=== PATIENT | male | born 1965 | race Hispanic/Latino ===

== ENCOUNTER 2017-10-16 18:35 | Emergency (ER) | payer MEDICAID ==
[2017-10-16 18:35] VITALS: BMI 25.8
[2017-10-16 18:42] VITALS: BP 127/67; PULSE 77; RESP 20; TEMP 98.1; O2SAT 100
--- NOTE | 2017-10-16 19:29 | ED PDOC ---
Lower Extremity Pain/Injury Time Seen by Provider: 10/16/17 18:54 Chief Complaint (Nursing): Lower Extremity Problem/Injury Chief Complaint (Provider): Lower Extremity Problem/Injury History Per: Patient History/Exam Limitations: no limitations Onset/Duration Of Symptoms: Days (x 1 ) Current Symptoms Are (Timing): Still Present Additional Complaint(s): 52 year old male presents to the ED complaining of right lower extremity pain. Patient reports most likely breaking right lower extremity about 4 weeks ago. He had surgery on September 22 and was admitted to outpatient rehabilitation who discharged him today. Patient was seen at [facility] today where he was reevaluated and sent out with prescriptions for Tramadol and antibiotics. He reports pain when he attempts to ambulate. PMD: none provided Past Medical History Reviewed: Historical Data, Nursing Documentation, Vital Signs Vital Signs: Last Vital Signs Temp 98.1 F 10/16/17 18:40 Pulse 77 10/16/17 18:40 Resp 20 10/16/17 18:40 BP 127/67 10/16/17 18:40 Pulse Ox 100 10/16/17 18:40 - Medical History PMH: Anxiety, Bronchitis, COPD (Chronic bronchitis), Hepatitis, Pneumonia Denies: Diabetes, HIV, HTN, Chronic Kidney Disease, Seizures, Sexually Transmitted Disease - Surgical History Other surgeries: right leg surgery - Family History Family History: States: Unknown Family Hx - Social History Current smoker - smoking cessation education provided: Yes Alcohol: None Drugs: Denies - Immunization History Hx Tetanus Toxoid Vaccination: No Hx Influenza Vaccination: No Hx Pneumococcal Vaccination: Yes - Home Medications Home Medications: Ambulatory Orders Medication Instructions Recorded Doxycycline Hyclate 100 mg PO BID #20 cap 10/16/17 traMADol [Ultram] 50 mg PO Q6 PRN #20 tab 10/16/17 - Allergies Allergies/Adverse Reactions: Allergies Allergy/AdvReac Type Severity Reaction Status Date / Time No Known Allergies Allergy Verified 10/16/17 18:40 Review of Systems ROS Statement: Except As Marked, All Systems Reviewed And Found Negative Musculoskeletal: Positive for: Leg Pain (right lower leg pain upon ambulation), Other Physical Exam - Reviewed Nursing Documentation Reviewed: Yes Vital Signs Reviewed: Yes - Physical Exam Appears: Positive for: Non-toxic, No Acute Distress Head Exam: Positive for: ATRAUMATIC, NORMOCEPHALIC Skin: Positive for: Normal Color, Warm, Dry Eye Exam: Positive for: EOMI, Normal appearance, PERRL Neck: Positive for: Normal, Painless ROM, Supple Cardiovascular/Chest: Positive for: Regular Rate, Rhythm. Negative for: Murmur Respiratory: Positive for: Normal Breath Sounds. Negative for: Respiratory Distress Gastrointestinal/Abdominal: Positive for: Normal Exam, Soft. Negative for: Tenderness Back: Positive for: Normal Inspection. Negative for: L CVA Tenderness, R CVA Tenderness, Vertebral Tenderness Extremity: Positive for: Swelling (mild distal swelling of right lower extremity. ), Other (Wound with sutures in place and mild redness around it. Tender to touch.). Negative for: Deformity - Laboratory Results Result Diagrams: 10/16/17 19:53 10/16/17 19:53 - ECG O2 Sat by Pulse Oximetry: 100 (RA) Pulse Ox Interpretation: Normal Medical Decision Making Medical Decision Making: Time: 19:17 Impression: right lower extremity pain Initial Plan: --CMP --CBC with differentials --Erythrocyte Sedimentation Rate --Toradol 30 mg IV --Blood cx --Right ankle x-ray --Right tibula fibula x-ray Scribe Attestation: Documented by Poppy Baldwin, acting as a scribe for Marce Villatoro MD. Provider Scribe Attestation: All medical record entries made by the Scribe were at my direction and personally dictated by me. I have reviewed the chart and agree that the record accurately reflects my personal performance of the history, physical exam, medical decision making, and the department course for this patient. I have also personally directed, reviewed, and agree with the discharge instructions and disposition. 9.30p - labs normal. x-rays shows ORIF. Disposition - Clinical Impression Clinical Impression: Tibia/fibula fracture - Patient ED Disposition Is Patient to be Admitted: No Doctor Will See Patient In The: Office Counseled Patient/Family Regarding: Diagnosis, Need For Followup - Disposition Disposition: Routine/Home Disposition Time: 21:35 Condition: STABLE Additional Instructions: take meds that were prescribed to you from [facility] ER Instructions: Tibia Fracture, Fibula Fracture (DC) Forms: [employer] (Khmer), [facility] ED School/Work Excuse - POA Present On Arrival: Falls Or Trauma
[2017-10-16 19:57] LABS: BASO # 0.1 K/uL (0.0-0.2); BASO % 1.3 % (0.0-2.0); EOS # 0.1 K/uL (0.0-0.7); EOS % 1.6 % (0.0-4.0); HEMOGLOBIN 13.4 g/dL (12.0-18.0); LYMPH # 1.5 K/uL (1.0-4.3); LYMPH % 16.6 % (20.0-40.0); MEAN CELL VOLUME 86.2 fl (80.0-94.0); MEAN CORPUSCULAR HEMOGLOBIN 28.2 pg (27.0-31.0); MEAN CORPUSCULAR HGB CONC 32.8 g/dL (33.0-37.0); MEAN PLATELET VOLUME 9.5 fl (7.2-11.7); MONO # 0.5 K/uL (0.0-0.8); MONO % 6.1 % (0.0-10.0); NEUT # 6.6 K/uL (1.8-7.0); NEUT % 74.4 % (50.0-75.0); RBC 4.74 Mil/uL (4.40-5.90); RED CELL DISTRIBUTION WIDTH 14.4 % (11.5-14.5); WHITE BLOOD COUNT 8.9 K/uL (4.8-10.8)
[2017-10-16 20:41] LABS: ALB/GLOB RATIO 1.1 (1.0-2.1); ALBUMIN 4.1 g/dL (3.5-5.0); ALT/SGPT 51 U/L (21-72); AST/SGOT 49 U/L (17-59); BLOOD UREA NITROGEN 13 mg/dl (9-20); CALCIUM 9.9 mg/dL (8.4-10.2); GFR AFRICAN-AMERICAN > 60; GFR NON-AFRICAN AMERICAN > 60
--- NOTE | 2017-10-17 10:10 | RAD ---
PROCEDURE: Right ankle Radiographs. HISTORY: fracture history COMPARISON: None. FINDINGS: BONES: Status post ORIF of a distal tibial fracture with persistent angulation of the distal fragment. Accompanying comminuted fracture of the distal fibula. JOINTS: Normal. No dislocation. SOFT TISSUES: Normal. OTHER FINDINGS: None. IMPRESSION: Status post ORIF of a distal tibial fracture with persistent angulation of the distal fragment. Accompanying comminuted fracture of the distal fibula.
--- NOTE | 2017-10-17 10:11 | RAD ---
HISTORY: past h/o fracture COMPARISON: No prior FINDINGS: BONES: Status post ORIF of a tibial shaft fracture with comminution. Distal comminuted fracture of the distal fibula. JOINTS: Normal. No osteoarthritis. SOFT TISSUE: Normal. OTHER FINDINGS: None . IMPRESSION: Status post ORIF of a tibial shaft fracture with comminution. Distal comminuted fracture of the distal fibula.
== END 2017-10-16 22:25 | disposition home or self-care (01) ==
LOC: H.ER 18:35
DX: M79.604 Pain in right leg (principal); F41.9 Anxiety disorder, unspecified; J44.9 Chronic obstructive pulmonary disease, unspecified
CPT/HCPCS: 73590; 73610; 80053; 85025; 85651; 87040; 96374; 99284; J1885

== ENCOUNTER 2018-02-19 19:53 | Inpatient (IN) | payer MEDICAID ==
[2018-02-19] MEDS ORDERED: Sodium Chloride 0.9% 1,000 ML IV STA (20:45)
[2018-02-19 20:47] LABS: BASO # 0.1 K/uL (0.0-0.2); BASO % 0.6 % (0.0-2.0); EOS # 0.3 K/uL (0.0-0.7); EOS % 2.5 % (0.0-4.0); HEMOGLOBIN 15.6 g/dL (12.0-18.0); LYMPH # 4.9 K/uL (1.0-4.3); MEAN CELL VOLUME 86.8 fl (80.0-94.0); MEAN CORPUSCULAR HEMOGLOBIN 29.8 pg (27.0-31.0); MEAN CORPUSCULAR HGB CONC 34.3 g/dL (33.0-37.0); MEAN PLATELET VOLUME 8.4 fl (7.2-11.7); MONO # 0.7 K/uL (0.0-0.8); MONO % 6.6 % (0.0-10.0); NEUT # 4.5 K/uL (1.8-7.0); NEUT % 43.3 % (50.0-75.0); NRBC % 0.1 % (0.0-0.0); RBC 5.23 Mil/uL (4.40-5.90); RED CELL DISTRIBUTION WIDTH 14.5 % (11.5-14.5); WHITE BLOOD COUNT 10.4 K/uL (4.8-10.8)
--- NOTE | 2018-02-19 21:04 | ED PDOC ---
HPI: Abdomen Time Seen by Provider: 02/19/18 20:04 Chief Complaint (Nursing): Chest Pain Chief Complaint (Provider): abdominal pain History Per: Patient History/Exam Limitations: no limitations Onset/Duration Of Symptoms: Days (x1) Current Symptoms Are (Timing): Still Present Additional Complaint(s): 53 year old male with medical history of alcoholism and pancreatitis, presents to ED with a complaint of upper abdominal pain radiating to back ongoing for 1 day. He further reports associated nausea, nonbloody/nonbilious vomiting and chest pain. Patient states symptoms feel similar to previous pancreatitis episode in the past and admits to drinking alcohol yesterday. PMD: none provided Past Medical History Reviewed: Historical Data, Nursing Documentation, Vital Signs Vital Signs: Last Vital Signs Temp 98.2 F 02/20/18 01:13 Pulse 63 02/20/18 01:13 Resp 20 02/20/18 01:13 BP 138/79 02/20/18 01:13 Pulse Ox 98 02/20/18 01:13 - Medical History PMH: Anxiety, Bipolar Disorder, Bronchitis, COPD, Depression, Hepatitis (C), Pancreatitis, Pneumonia, Post Traumatic Stress Disorder Denies: Diabetes, HIV (Patient denied), HTN (Patient denied), Chronic Kidney Disease, Seizures, Sexually Transmitted Disease (Patient denied) - Family History Family History: States: Unknown Family Hx - Social History Current smoker - smoking cessation education provided: No Alcohol: Occasional Drugs: Denies - Immunization History Hx Tetanus Toxoid Vaccination: No Hx Influenza Vaccination: Yes Hx Pneumococcal Vaccination: Yes - Home Medications Home Medications: Ambulatory Orders Medication Instructions Recorded No Known Home Med 02/19/18 - Allergies Allergies/Adverse Reactions: Allergies Allergy/AdvReac Type Severity Reaction Status Date / Time No Known Allergies Allergy Verified 02/20/18 01:55 Review of Systems ROS Statement: Except As Marked, All Systems Reviewed And Found Negative Cardiovascular: Positive for: Chest Pain Gastrointestinal: Positive for: Nausea, Vomiting (NBNB), Abdominal Pain (upper) Musculoskeletal: Positive for: Back Pain Physical Exam - Reviewed Nursing Documentation Reviewed: Yes Vital Signs Reviewed: Yes - Physical Exam Appears: Positive for: Uncomfortable Head Exam: Positive for: ATRAUMATIC, NORMAL INSPECTION, NORMOCEPHALIC Skin: Positive for: Normal Color Eye Exam: Positive for: Normal appearance ENT: Positive for: Other (dry mucous membranes) Neck: Positive for: Normal Cardiovascular/Chest: Positive for: Regular Rate, Rhythm, Chest Non Tender. Negative for: Murmur Respiratory: Positive for: Normal Breath Sounds. Negative for: Respiratory Distress Gastrointestinal/Abdominal: Positive for: Soft, Tenderness (epigastric) Back: Positive for: Normal Inspection. Negative for: L CVA Tenderness, R CVA Tenderness Extremity: Positive for: Normal ROM (upper/lower) Neurologic/Psych: Positive for: Alert, Oriented. Negative for: Motor/Sensory Deficits - Laboratory Results Result Diagrams: 02/19/18 20:15 02/19/18 20:15 - ECG O2 Sat by Pulse Oximetry: 99 (RA) Pulse Ox Interpretation: Normal Medical Decision Making Medical Decision Making: Initial Impression: 53 year old male with chest pain and abdominal pain , in setting of known pancreatitis and alcohol abuse Initial Plan: * Alcohol serum * CMP * Drug screen, urine * Lipase * Troponin I * CBC * PTT * PT * Morphine 2mg IVP * NS 1,000ml IV per 1,000mls/hr * Pepcid 20mg IV * Zofran 4mg IV Time: 2125 --Alcohol serum: 358 mg/dl Scribe Attestation: Documented by Janette Salmeron, acting as a scribe for James Cordova MD. Provider Scribe Attestation: All medical record entries made by the Scribe were at my direction and personally dictated by me. I have reviewed the chart and agree that the record accurately reflects my personal performance of the history, physical exam, medical decision making, and the department course for this patient. I have also personally directed, reviewed, and agree with the discharge instructions and disposition. Disposition - Clinical Impression Clinical Impression: Alcoholic pancreatitis - Patient ED Disposition Is Patient to be Admitted: Yes - Disposition Disposition Time: 22:00 Condition: STABLE
[2018-02-19 21:10] LABS: PARTIAL THROMBOPLASTIN TIME 33.1 Seconds (25.6-37.1); PROTHROMBIN TIME 10.7 Seconds (9.8-13.1)
[2018-02-19 21:21] LABS: ALB/GLOB RATIO 1.3 (1.0-2.1); ALBUMIN 4.8 g/dL (3.5-5.0); ALT/SGPT 113 U/L (21-72); AST/SGOT 131 U/L (17-59); BLOOD UREA NITROGEN 10 mg/dl (9-20); GFR AFRICAN-AMERICAN > 60; GFR NON-AFRICAN AMERICAN > 60
[2018-02-19 21:40] LABS: BARBITURATES, UR NEGATIVE (NEGATIVE); BENZODIAZEPINES, UR NEGATIVE (NEGATIVE); OPIATES, UR NEGATIVE (NEGATIVE); PHENCYCLIDINE, UR NEGATIVE (NEGATIVE)
[2018-02-19] MEDS: Lactated Ringer's 1,000 ML IV STA (22:45)
[2018-02-20 01:55] VITALS: BMI 31.5
[2018-02-20] MEDS ORDERED: Sodium Chloride 0.9% 1,000 ML IV SCH (02:00)
--- NOTE | 2018-02-20 08:54 | CP.PCM.CON ---
<Maxine Nichole - Last Filed: 02/20/18 09:41> History of Present Illness - History of Present Illness History of Present Illness: Gastroenterology Fellow/PGY6 Consult Note 53 year old male with PMH of Polysubstance Abuse, Alcoholic Pancreatitis 02/2017 , and HCV 2008 s/p IFN/Ribavirin 2009 without SVR presenting with abdominal pain. Patient notes sudden onset of epigastric pain to back yesterday, pain scale 10/10. Admits to daily 12pack 24 ounce beers and a pint of vodka for the last year. Patient is more severe than pancreatitis episode last year. Associated loss of appetite, nausea, sweats, and last bowel movement being two days ago. Denies fever, chills, vomting, diarrhea, melena, hematochezia, heartburn, bloating, postprandial pain, leg swelling, chest pain, or shortness of breath. Admits to poor oral intake due to heavy alcohol abuse leading to 45 pound weight loss in the last three years. Seen in [facility] ED on 02/07 for lethargy due to heroin and alcohol intoxication requiring Narcan therapy and referred to Detox. No prior EGD. Prior colonoscopy seven years ago endorsed to be normal. Family History- denies pancreatitis, pancreatic cancer, stomach cancer, colon cancer Social History- 08/12 ppdx30 years., cocaine, marijuana/heroin over last 30 years , 12-pack 24-oz beers daily/pint vodka [id number] years Surgical History -RLE ORIF, left shoulder surgery Review of Systems - Review of Systems Review of Systems: 12-point review of systems negative except for as above Past Patient History - Infectious Disease Hx of Infectious Diseases: None - Past Medical History & Family History Past Medical History?: Yes - Past Social History Alcohol: Occasional Drugs: Denies - CARDIAC Hx Hypertension: No (Patient denied) - PULMONARY Hx Bronchitis: Yes Hx Chronic Obstructive Pulmonary Disease (COPD): Yes Hx Pneumonia: Yes - NEUROLOGICAL Hx Seizures: No - HEENT Hx HEENT Problems: Yes Other/Comment: " defect on L eye,Blurry Vision " - RENAL Hx Chronic Kidney Disease: No - ENDOCRINE/METABOLIC Hx Endocrine Disorders: Yes Other/Comment: Border line DM, denies taking meds - HEMATOLOGICAL/ONCOLOGICAL Hx Human Immunodeficiency Virus (HIV): No (Patient denied) - INTEGUMENTARY Hx Dermatological Problems: No - MUSCULOSKELETAL/RHEUMATOLOGICAL Hx Falls: Yes - GASTROINTESTINAL Hx Pancreatitis: Yes - GENITOURINARY/GYNECOLOGICAL Hx Sexually Transmitted Disorders: No (Patient denied) - PSYCHIATRIC Hx Anxiety: Yes Hx Bipolar Disorder: Yes Hx Depression: Yes Hx Post Traumatic Stress Disorder: Yes - SURGICAL HISTORY Hx Surgeries: Yes Hx Orthopedic Surgery: Yes (R leg 09/22/17 ORIF right Tib) Other/Comment: Surgery on L shoulder 15. years ago from injury", a big TV fell on my Shoulder" - ANESTHESIA Hx Anesthesia: Yes Hx Anesthesia Reactions: No Hx Malignant Hyperthermia: No Meds Allergies/Adverse Reactions: Allergies Allergy/AdvReac Type Severity Reaction Status Date / Time No Known Allergies Allergy Verified 02/20/18 01:55 - Medications Medications: Current Medications Enoxaparin Sodium (Lovenox) 40 mg SC DAILY [facility] PRN Reason: Protocol Lactated Ringer's (Lactated Ringer's) 1,000 mls @ 1,000 mls/hr IV .Q1H [facility] Morphine Sulfate (Morphine) 2 mg IVP Q3 PRN PRN Reason: Pain, severe (8-10) Last Admin: 02/20/18 08:51 Dose: 2 mg Ondansetron HCl (Zofran Inj) 4 mg IVP Q8 PRN PRN Reason: Nausea/Vomiting Last Admin: 02/20/18 07:26 Dose: 4 mg Pantoprazole Sodium (Protonix Inj) 40 mg IVP DAILY [facility] Last Admin: 02/20/18 02:14 Dose: 40 mg Physical Exam - Constitutional Appears: Non-toxic, No Acute Distress, Other - Head Exam Head Exam: ATRAUMATIC, NORMOCEPHALIC - Eye Exam Eye Exam: EOMI, PERRL. absent: Scleral icterus Pupil Exam: PERRL. absent: Miosis, Mydriatic - ENT Exam ENT Exam: Mucous Membranes Dry, Normal Oropharynx - Neck Exam Neck exam: Positive for: Full Rom, Normal Inspection - Respiratory Exam Respiratory Exam: Clear to Auscultation Bilateral. absent: Rales, Rhonchi, Wheezes - Cardiovascular Exam Cardiovascular Exam: RRR, +S1, +S2. absent: Gallop, Rubs - GI/Abdominal Exam GI & Abdominal Exam: Guarding, Hypoactive Bowel Sounds, Soft, Tenderness. absent: Distended, Firm, Organomegaly, Rebound, Rigid Additional comments: epigastric tenderness to palpation - Extremities Exam Extremities exam: Positive for: normal inspection. Negative for: pedal edema - Neurological Exam Neurological exam: Alert, Oriented x3 - Psychiatric Exam Psychiatric exam: Normal Affect, Normal Mood - Skin Skin Exam: Diaphoretic, Intact, Normal Color, Warm Results - Vital Signs Recent Vital Signs: Last Vital Signs Temp 98.2 F 02/20/18 01:13 Pulse 63 02/20/18 01:13 Resp 20 02/20/18 01:13 BP 138/79 02/20/18 01:13 Pulse Ox 99 02/20/18 04:48 - Labs Result Diagrams: 02/19/18 20:15 02/19/18 20:15 Labs: Laboratory Results - last 24 hr 02/19/18 02/19/18 02/19/18 20:15 20:15 20:15 WBC 10.4 RBC 5.23 Hgb 15.6 D Hct 45.4 MCV 86.8 MCH 29.8 MCHC 34.3 RDW 14.5 Plt Count 199 MPV 8.4 Neut % (Auto) 43.3 L Lymph % (Auto) 47.0 H Oliver % (Auto) 6.6 Eos % (Auto) 2.5 Baso % (Auto) 0.6 Neut # (Auto) 4.5 Lymph # (Auto) 4.9 H Oliver # (Auto) 0.7 Eos # (Auto) 0.3 Baso # (Auto) 0.1 PT 10.7 INR 1.0 APTT 33.1 Sodium 144 Potassium 4.1 Chloride 105 Carbon Dioxide 23 Anion Gap 20 BUN 10 Creatinine 0.7 L Est GFR ( Amer) > 60 Est GFR (Non-Af Amer) > 60 Random Glucose 110 Calcium 9.0 Total Bilirubin 0.6 AST 131 H ALT 113 H D Alkaline Phosphatase 150 H Troponin I < 0.0120 Total Protein 8.6 H Albumin 4.8 Globulin 3.8 Albumin/Globulin Ratio 1.3 Lipase Urine Opiates Screen Urine Methadone Screen Ur Barbiturates Screen Ur Phencyclidine Scrn Ur Amphetamines Screen U Benzodiazepines Scrn U Oth Cocaine Metabols U Cannabinoids Screen Alcohol, Quantitative 358 H* 02/19/18 02/19/18 20:46 20:46 WBC RBC Hgb Hct MCV MCH MCHC RDW Plt Count MPV Neut % (Auto) Lymph % (Auto) Oliver % (Auto) Eos % (Auto) Baso % (Auto) Neut # (Auto) Lymph # (Auto) Oliver # (Auto) Eos # (Auto) Baso # (Auto) PT INR APTT Sodium Potassium Chloride Carbon Dioxide Anion Gap BUN Creatinine Est GFR ( Amer) Est GFR (Non-Af Amer) Random Glucose Calcium Total Bilirubin AST ALT Alkaline Phosphatase Troponin I Total Protein Albumin Globulin Albumin/Globulin Ratio Lipase 525 H Urine Opiates Screen Negative Urine Methadone Screen Negative Ur Barbiturates Screen Negative Ur Phencyclidine Scrn Negative Ur Amphetamines Screen Negative U Benzodiazepines Scrn Negative U Oth Cocaine Metabols Negative U Cannabinoids Screen Negative Alcohol, Quantitative Assessment & Plan - Assessment and Plan (Free Text) Assessment: 53 year old male with PMH of Polysubstance Abuse, Alcoholic Pancreatitis 02/2017 , and HCV 2008 s/p IFN/Ribavirin 2009 without SVR presenting with abdominal pain. Active treatment of alcoholic pancreatitis and alcohol withdrawal. No prior EGD. Prior colonoscopy seven years ago endorsed to be normal. Plan: -NPO -aggressive IVFs -received 2L IVF bolus -ordered 3rd LR bolus -maintenance LR 250cc/hr -suportive care: pain control, anti-emetics -pending U/S to evaluate for gallstones -counselled on alcohol cessation -alcohol withdrawal protocol -UDS negative -recommend evaluate for inpatient detox -will follow clinical course <Jaskaran Overton - Last Filed: 02/20/18 09:53> Meds - Medications Medications: Current Medications Enoxaparin Sodium (Lovenox) 40 mg SC DAILY [facility] PRN Reason: Protocol Lactated Ringer's (Lactated Ringer's) 1,000 mls @ 1,000 mls/hr IV .Q1H [facility] Lactated Ringer's (Lactated Ringer's) 1,000 mls @ 250 mls/hr IV .Q4H [facility] Stop: 02/20/18 21:59 Morphine Sulfate (Morphine) 2 mg IVP Q3 PRN PRN Reason: Pain, severe (8-10) Last Admin: 02/20/18 08:51 Dose: 2 mg Ondansetron HCl (Zofran Inj) 4 mg IVP Q8 PRN PRN Reason: Nausea/Vomiting Last Admin: 02/20/18 07:26 Dose: 4 mg Pantoprazole Sodium (Protonix Inj) 40 mg IVP DAILY [facility] Last Admin: 02/20/18 02:14 Dose: 40 mg Results - Vital Signs Recent Vital Signs: Last Vital Signs Temp 98.2 F 02/20/18 01:13 Pulse 63 02/20/18 01:13 Resp 20 02/20/18 01:13 BP 138/79 02/20/18 01:13 Pulse Ox 99 02/20/18 04:48 - Labs Result Diagrams: 02/19/18 20:15 02/19/18 20:15 Labs: Laboratory Results - last 24 hr 02/19/18 02/19/18 02/19/18 20:15 20:15 20:15 WBC 10.4 RBC 5.23 Hgb 15.6 D Hct 45.4 MCV 86.8 MCH 29.8 MCHC 34.3 RDW 14.5 Plt Count 199 MPV 8.4 Neut % (Auto) 43.3 L Lymph % (Auto) 47.0 H Oliver % (Auto) 6.6 Eos % (Auto) 2.5 Baso % (Auto) 0.6 Neut # (Auto) 4.5 Lymph # (Auto) 4.9 H Oliver # (Auto) 0.7 Eos # (Auto) 0.3 Baso # (Auto) 0.1 PT 10.7 INR 1.0 APTT 33.1 Sodium 144 Potassium 4.1 Chloride 105 Carbon Dioxide 23 Anion Gap 20 BUN 10 Creatinine 0.7 L Est GFR ( Amer) > 60 Est GFR (Non-Af Amer) > 60 Random Glucose 110 Calcium 9.0 Total Bilirubin 0.6 AST 131 H ALT 113 H D Alkaline Phosphatase 150 H Troponin I < 0.0120 Total Protein 8.6 H Albumin 4.8 Globulin 3.8 Albumin/Globulin Ratio 1.3 Lipase Urine Opiates Screen Urine Methadone Screen Ur Barbiturates Screen Ur Phencyclidine Scrn Ur Amphetamines Screen U Benzodiazepines Scrn U Oth Cocaine Metabols U Cannabinoids Screen Alcohol, Quantitative 358 H* 02/19/18 02/19/18 20:46 20:46 WBC RBC Hgb Hct MCV MCH MCHC RDW Plt Count MPV Neut % (Auto) Lymph % (Auto) Oliver % (Auto) Eos % (Auto) Baso % (Auto) Neut # (Auto) Lymph # (Auto) Oliver # (Auto) Eos # (Auto) Baso # (Auto) PT INR APTT Sodium Potassium Chloride Carbon Dioxide Anion Gap BUN Creatinine Est GFR ( Amer) Est GFR (Non-Af Amer) Random Glucose Calcium Total Bilirubin AST ALT Alkaline Phosphatase Troponin I Total Protein Albumin Globulin Albumin/Globulin Ratio Lipase 525 H Urine Opiates Screen Negative Urine Methadone Screen Negative Ur Barbiturates Screen Negative Ur Phencyclidine Scrn Negative Ur Amphetamines Screen Negative U Benzodiazepines Scrn Negative U Oth Cocaine Metabols Negative U Cannabinoids Screen Negative Alcohol, Quantitative Attending/Attestation - Attestation I have personally seen and examined this patient.: Yes I have fully participated in the care of the patient.: Yes I have reviewed all pertinent clinical information: Yes Notes (Text): 02/20/18 09:49 I have seen and examined patient with GI fellow. Agree with above documentation with the following additions. In brief, this is a 53 year old male with history of polysubstance and ETOH abuse, HCV who presents to hospital with complaint of severe abdominal pain in setting of ongoing ETOH binge consumption. He describes an epigastric 10/10 intensity pain radiating to back that is worse after attempted meal consumption. He denies associated nausea, vomiting, fever/chills, or change in bowel habits. He has not had a bowel movement over past 3 days. He does admit to a nearly 40 pound weight loss over the past 2 years due to chronic alcoholism with reduced PO intake. He has tried to seek admission to rehabilitation facility without success. He had a colonoscopy 7 years ago which was normal as per patient. Review of vitals from today are normal. Polysubstance abuse ETOH abuse history of HCV Abdominal pain, acute ETOH pancreatitis - NPO - Aggressive IVF hydration - Monitor for signs of ETOH withdrawal - Obtain HCV viral load - LFTs stable, continue to monitor - Abdominal US ordered, rule out gallstones, liver lesion - ETOH cessation counseling - Will continue to monitor patient clinical course
[2018-02-20] MEDS ORDERED: Lactated Ringer's 1,000 ML IV SCH (09:00)
--- NOTE | 2018-02-20 09:37 | CP.PCM.CON ---
History of Present Illness - History of Present Illness History of Present Illness: General Surgery Dr. Magaña 53 y/o M w/ PMHx of COPD, pancreatitis, EtOH dependence presented to the ED last evening c/o abd pain, N/V. Pt reports pain for last couple of weeks for which he was self-medicating w/ EtOH. Pt had similar pain ~1yr ago, at which time he was treated for pancreatitis [facility]. Pain worsened Wednesday and has been constant since then. Nothing made the pain better and movement made the pain worse. Pt reports pain stabs straight through to back. Pt no longer able to tolerate the pain, thus prompting him to come to the ED Wednesday night. Pt reports vomiting w/ any PO intake. Pt reports concurrent heat intolerance and constipation. Pt denies F/C, diarrhea, hematemesis, melena, hematochezia. PMHx: see above, depression, anxiety, bipolar, PTSD, poly substance abuse Meds: reviewed in chart NKDA PSHx: RLE compound fx repair, L shoulder arthroscopy SHx: 1/2 PPD x 50yrs. 6-12 24oz beers daily. (+)marijuana (1wk ago), cocaine ( unsure last use), Heroine (2wks ago) FHx: reviewed, noncontributory Review of Systems - Review of Systems All systems: reviewed and no additional remarkable complaints except (see HPI) Past Patient History - Infectious Disease Hx of Infectious Diseases: None - Past Medical History & Family History Past Medical History?: Yes - Past Social History Alcohol: Occasional Drugs: Denies - CARDIAC Hx Hypertension: No (Patient denied) - PULMONARY Hx Bronchitis: Yes Hx Chronic Obstructive Pulmonary Disease (COPD): Yes Hx Pneumonia: Yes - NEUROLOGICAL Hx Seizures: No - HEENT Hx HEENT Problems: Yes Other/Comment: " defect on L eye,Blurry Vision " - RENAL Hx Chronic Kidney Disease: No - ENDOCRINE/METABOLIC Hx Endocrine Disorders: Yes Other/Comment: Border line DM, denies taking meds - HEMATOLOGICAL/ONCOLOGICAL Hx Human Immunodeficiency Virus (HIV): No (Patient denied) - INTEGUMENTARY Hx Dermatological Problems: No - MUSCULOSKELETAL/RHEUMATOLOGICAL Hx Falls: Yes - GASTROINTESTINAL Hx Pancreatitis: Yes - GENITOURINARY/GYNECOLOGICAL Hx Sexually Transmitted Disorders: No (Patient denied) - PSYCHIATRIC Hx Anxiety: Yes Hx Bipolar Disorder: Yes Hx Depression: Yes Hx Post Traumatic Stress Disorder: Yes - SURGICAL HISTORY Hx Surgeries: Yes Hx Orthopedic Surgery: Yes (R leg 09/22/17 ORIF right Tib) Other/Comment: Surgery on L shoulder 15. years ago from injury", a big TV fell on my Shoulder" - ANESTHESIA Hx Anesthesia: Yes Hx Anesthesia Reactions: No Hx Malignant Hyperthermia: No Meds Allergies/Adverse Reactions: Allergies Allergy/AdvReac Type Severity Reaction Status Date / Time No Known Allergies Allergy Verified 02/20/18 01:55 - Medications Medications: Current Medications Enoxaparin Sodium (Lovenox) 40 mg SC DAILY IAN PRN Reason: Protocol Lactated Ringer's (Lactated Ringer's) 1,000 mls @ 1,000 mls/hr IV .Q1H IAN Lactated Ringer's (Lactated Ringer's) 1,000 mls @ 250 mls/hr IV .Q4H [facility] Stop: 02/20/18 21:59 Morphine Sulfate (Morphine) 2 mg IVP Q3 PRN PRN Reason: Pain, severe (8-10) Last Admin: 02/20/18 08:51 Dose: 2 mg Ondansetron HCl (Zofran Inj) 4 mg IVP Q8 PRN PRN Reason: Nausea/Vomiting Last Admin: 02/20/18 07:26 Dose: 4 mg Pantoprazole Sodium (Protonix Inj) 40 mg IVP DAILY [facility] Last Admin: 02/20/18 02:14 Dose: 40 mg Physical Exam - Constitutional Appears: Non-toxic, No Acute Distress - Head Exam Head Exam: NORMOCEPHALIC. absent: ATRAUMATIC (abrasion to upper lip. scar to nasal bone) - Eye Exam Eye Exam: Normal appearance - ENT Exam ENT Exam: Mucous Membranes Moist - Respiratory Exam Respiratory Exam: NORMAL BREATHING PATTERN. absent: Accessory Muscle Use, Respiratory Distress - Cardiovascular Exam Cardiovascular Exam: REGULAR RHYTHM. absent: Bradycardia, Tachycardia - GI/Abdominal Exam GI & Abdominal Exam: Soft. absent: Distended, Firm, Guarding, Rebound, Rigid, Tenderness - Extremities Exam Extremities exam: Positive for: normal inspection - Neurological Exam Neurological exam: Alert, Oriented x3 - Psychiatric Exam Psychiatric exam: Normal Affect, Normal Mood - Skin Skin Exam: Dry, Intact, Normal Color, Warm Results - Vital Signs Recent Vital Signs: Last Vital Signs Temp 98.2 F 02/20/18 01:13 Pulse 63 02/20/18 01:13 Resp 20 02/20/18 01:13 BP 138/79 02/20/18 01:13 Pulse Ox 99 02/20/18 04:48 - Labs Result Diagrams: 02/19/18 20:15 02/19/18 20:15 Labs: Laboratory Results - last 24 hr 02/19/18 02/19/18 02/19/18 20:15 20:15 20:15 WBC 10.4 RBC 5.23 Hgb 15.6 D Hct 45.4 MCV 86.8 MCH 29.8 MCHC 34.3 RDW 14.5 Plt Count 199 MPV 8.4 Neut % (Auto) 43.3 L Lymph % (Auto) 47.0 H [place] % (Auto) 6.6 Eos % (Auto) 2.5 Baso % (Auto) 0.6 Neut # (Auto) 4.5 Lymph # (Auto) 4.9 H [place] # (Auto) 0.7 Eos # (Auto) 0.3 Baso # (Auto) 0.1 PT 10.7 INR 1.0 APTT 33.1 Sodium 144 Potassium 4.1 Chloride 105 Carbon Dioxide 23 Anion Gap 20 BUN 10 Creatinine 0.7 L Est GFR ( Amer) > 60 Est GFR (Non-Af Amer) > 60 Random Glucose 110 Calcium 9.0 Total Bilirubin 0.6 AST 131 H ALT 113 H D Alkaline Phosphatase 150 H Troponin I < 0.0120 Total Protein 8.6 H Albumin 4.8 Globulin 3.8 Albumin/Globulin Ratio 1.3 Lipase Urine Opiates Screen Urine Methadone Screen Ur Barbiturates Screen Ur Phencyclidine Scrn Ur Amphetamines Screen U Benzodiazepines Scrn U Oth Cocaine Metabols U Cannabinoids Screen Alcohol, Quantitative 358 H* 02/19/18 02/19/18 20:46 20:46 WBC RBC Hgb Hct MCV MCH MCHC RDW Plt Count MPV Neut % (Auto) Lymph % (Auto) [place] % (Auto) Eos % (Auto) Baso % (Auto) Neut # (Auto) Lymph # (Auto) [place] # (Auto) Eos # (Auto) Baso # (Auto) PT INR APTT Sodium Potassium Chloride Carbon Dioxide Anion Gap BUN Creatinine Est GFR ( Amer) Est GFR (Non-Af Amer) Random Glucose Calcium Total Bilirubin AST ALT Alkaline Phosphatase Troponin I Total Protein Albumin Globulin Albumin/Globulin Ratio Lipase 525 H Urine Opiates Screen Negative Urine Methadone Screen Negative Ur Barbiturates Screen Negative Ur Phencyclidine Scrn Negative Ur Amphetamines Screen Negative U Benzodiazepines Scrn Negative U Oth Cocaine Metabols Negative U Cannabinoids Screen Negative Alcohol, Quantitative - Imaging and Cardiology US - abdomen Status: Image reviewed by me, Report reviewed by me Assessment & Plan - Assessment and Plan (Free Text) Assessment: 53 y/o M w/ abd pain 2/2 EtOH pancreatitis - strict NPO/IVF - pain management - CIWA - monitor vitals - monitor bowel fxn - stool softener - f/u GI recs - recommend EtOH counseling - cont non-operative management - encourage OOB to chair/Amb Pt discussed w/ Dr. Gómez Ashraf DO PGY3
[2018-02-20] MEDS: Lactated Ringer's 1,000 ML IV SCH ×4 (10:00→22:38)
[2018-02-20] MEDS: Enoxaparin 40 mg Syringe SC SCH (11:53)
[2018-02-20] MEDS: Lactated Ringer's 1,000 ML IV STA (11:53)
--- NOTE | 2018-02-20 12:04 | US ---
Date of service: 02/19/2018 HISTORY: epigastric pain COMPARISON: None. TECHNIQUE: Sonographic evaluation of the right upper quadrant of the abdomen. FINDINGS: LIVER: Measures 14.1 cm in length. . Smooth contour however increased echogenicity suggesting fatty infiltration however other infiltrative hepatocellular disease process not excluded. . No mass. No intrahepatic bile duct dilatation. GALLBLADDER: There is a small approximately 4 mm hyperechoic focus within the gallbladder lumen that could represent a tiny cholesterol stone or polyp. No significant posterior acoustic shadowing. No pericholecystic fluid collections or sonographic Riebiro sign. COMMON BILE DUCT: Measures 5.0 mm. No stones. No dilatation. PANCREAS: Unremarkable as visualized. No mass. No ductal dilatation. RIGHT KIDNEY: Measures 11.2 x 5.5 x 5.0 cm in length. Normal echogenicity. No calculus, mass, or hydronephrosis. AORTA: No aneurysmal dilatation. IVC: Unremarkable. OTHER FINDINGS: None . IMPRESSION: There is a small echogenic focus within the gallbladder lumen that could represent a cholesterol stone or polyp demonstrating no significant posterior acoustic shadowing. No sonographic Ribeiro sign. Increased hepatic echotexture likely representing fatty infiltration however other infiltrative hepatic cellular disease process not excluded
[2018-02-21] MEDS: Lactated Ringer's 1,000 ML IV SCH ×5 (04:49→23:33)
[2018-02-21 06:38] LABS: HEMOGLOBIN 13.7 g/dL (12.0-18.0); MEAN CELL VOLUME 86.6 fl (80.0-94.0); MEAN CORPUSCULAR HEMOGLOBIN 30.2 pg (27.0-31.0); MEAN CORPUSCULAR HGB CONC 34.9 g/dL (33.0-37.0); RBC 4.54 Mil/uL (4.40-5.90); RED CELL DISTRIBUTION WIDTH 14.1 % (11.5-14.5); WHITE BLOOD COUNT 7.1 K/uL (4.8-10.8)
[2018-02-21 07:01] LABS: ALB/GLOB RATIO 1.2 (1.0-2.1); ALBUMIN 3.5 g/dL (3.5-5.0); ALT/SGPT 74 U/L (21-72); AMYLASE 99 U/L (30-110); AST/SGOT 67 U/L (17-59); BLOOD UREA NITROGEN 11 mg/dl (9-20); CALCIUM 8.7 mg/dL (8.4-10.2); GFR AFRICAN-AMERICAN > 60; GFR NON-AFRICAN AMERICAN > 60; LIPASE 102 U/L (23-300)
--- NOTE | 2018-02-21 07:33 | CP.PCM.PN ---
Subjective - Date & Time of Evaluation Date of Evaluation: 02/21/18 Time of Evaluation: 07:32 - Subjective Subjective: General surgery progress note for Dr. Khadra Chin, PGY-2 Pt S & E at bedside at 0640 Pt reports continued intermittent epigastric abdominal pain, nausea with dry heaves. Voiding. Pt reports he is ambulating, getting out of bed. Pt asking for help getting into a ETOH detox program. Objective - Vital Signs/Intake and Output Vital Signs (last 24 hours): Temp Pulse Resp BP Pulse Ox 98.2 F 60 20 125/77 95 02/21/18 00:32 02/21/18 00:32 02/21/18 00:32 02/20/18 17:00 02/21/18 00:32 - Medications Medications: Current Medications Bisacodyl (Dulcolax) 10 mg LA DAILY PRN PRN Reason: Constipation Chlordiazepoxide (Librium) 25 mg PO BID [facility] Last Admin: 02/20/18 18:54 Dose: 25 mg Enoxaparin Sodium (Lovenox) 40 mg SC DAILY [facility] PRN Reason: Protocol Last Admin: 02/20/18 11:53 Dose: 40 mg Lactated Ringer's (Lactated Ringer's) 1,000 mls @ 150 mls/hr IV .Q6H40M [facility] Last Admin: 02/21/18 04:49 Dose: 150 mls/hr Lorazepam (Ativan) 1 mg IVP Q6 PRN PRN Reason: Agitation Morphine Sulfate (Morphine) 2 mg IVP Q3 PRN PRN Reason: Pain, severe (8-10) Last Admin: 02/21/18 05:33 Dose: 2 mg Ondansetron HCl (Zofran Inj) 4 mg IVP Q8 PRN PRN Reason: Nausea/Vomiting Last Admin: 02/20/18 18:56 Dose: 4 mg Pantoprazole Sodium (Protonix Inj) 40 mg IVP DAILY [facility] Last Admin: 02/20/18 09:00 Dose: Not Given - Labs Labs: 02/21/18 05:50 02/21/18 05:50 PT 10.7 Seconds (9.8-13.1) 02/19/18 20:15 INR 1.0 (0.9-1.2) 02/19/18 20:15 APTT 33.1 Seconds (25.6-37.1) 02/19/18 20:15 - Constitutional Appears: Non-toxic, No Acute Distress - Head Exam Head Exam: ATRAUMATIC, NORMAL INSPECTION, NORMOCEPHALIC - Eye Exam Eye Exam: EOMI, Normal appearance - ENT Exam ENT Exam: Mucous Membranes Moist, Normal Exam - Neck Exam Neck Exam: Full ROM, Normal Inspection - Respiratory Exam Respiratory Exam: NORMAL BREATHING PATTERN - Cardiovascular Exam Cardiovascular Exam: REGULAR RHYTHM, +S1, +S2 - GI/Abdominal Exam GI & Abdominal Exam: Guarding, Soft, Tenderness (epigastric). absent: Distended , Firm, Rigid - Extremities Exam Extremities Exam: Normal Inspection - Neurological Exam Neurological Exam: Alert, Awake, CN II-XII Intact, Oriented x3 - Psychiatric Exam Psychiatric exam: Normal Affect, Normal Mood - Skin Skin Exam: Dry, Intact, Normal Color, Warm Assessment and Plan - Assessment and Plan (Free Text) Assessment: 53M w/abdominal pain due to ETOH pancreatitis Plan: Strict NPO OOBTC Ambulate Continue IVF Pain control CIWA protocol Monitor VS Monitor bowel function Stool softener Recommend ETOH counseling/recommendations for ETOH detox as per primary team No surgical intervention at this time Will TITA attending Elsy, PGY-2
[2018-02-21] MEDS: Enoxaparin 40 mg Syringe SC SCH (08:38)
--- NOTE | 2018-02-21 09:24 | CP.PCM.PN ---
<Yasmin Weller - Last Filed: 02/21/18 14:09> Subjective - Date & Time of Evaluation Date of Evaluation: 02/21/18 Time of Evaluation: 07:45 - Subjective Subjective: PGY5 GI Follow-up Pt seen and examined bedside still has epigastric abd pain +nausea was not able to tolerate PO intake yesterday ROS: 12 point RO conducted, neg other than above Objective - Vital Signs/Intake and Output Vital Signs (last 24 hours): Temp Pulse Resp BP Pulse Ox 97.9 F 72 20 143/78 97 02/21/18 08:04 02/21/18 08:04 02/21/18 08:04 02/21/18 08:04 02/21/18 08:04 - Medications Medications: Current Medications Bisacodyl (Dulcolax) 10 mg SC DAILY PRN PRN Reason: Constipation Chlordiazepoxide (Librium) 25 mg PO BID [facility] Last Admin: 02/20/18 18:54 Dose: 25 mg Enoxaparin Sodium (Lovenox) 40 mg SC DAILY [facility] PRN Reason: Protocol Last Admin: 02/21/18 08:38 Dose: 40 mg Lactated Ringer's (Lactated Ringer's) 1,000 mls @ 250 mls/hr IV .Q4H [facility] Lorazepam (Ativan) 1 mg IVP Q6 PRN PRN Reason: Agitation Morphine Sulfate (Morphine) 2 mg IVP Q3 PRN PRN Reason: Pain, severe (8-10) Last Admin: 02/21/18 08:37 Dose: 2 mg Ondansetron HCl (Zofran Inj) 4 mg IVP Q8 PRN PRN Reason: Nausea/Vomiting Last Admin: 02/20/18 18:56 Dose: 4 mg Pantoprazole Sodium (Protonix Inj) 40 mg IVP DAILY [facility] Last Admin: 02/21/18 08:38 Dose: 40 mg - Labs Labs: 02/21/18 05:50 02/21/18 05:50 PT 10.7 Seconds (9.8-13.1) 02/19/18 20:15 INR 1.0 (0.9-1.2) 02/19/18 20:15 APTT 33.1 Seconds (25.6-37.1) 02/19/18 20:15 - Constitutional Appears: Well, No Acute Distress, In Acute Distress - Head Exam Head Exam: ATRAUMATIC, NORMOCEPHALIC - Eye Exam Eye Exam: Normal appearance - ENT Exam ENT Exam: Mucous Membranes Moist, Normal Exam - Neck Exam Neck Exam: Normal Inspection - Respiratory Exam Respiratory Exam: Clear to Ausculation Bilateral, NORMAL BREATHING PATTERN. absent: Rales, Rhonchi, Wheezes, Respiratory Distress - Cardiovascular Exam Cardiovascular Exam: REGULAR RHYTHM, +S1, +S2 - GI/Abdominal Exam GI & Abdominal Exam: Soft, Tenderness (epigastric ), Normal Bowel Sounds. absent: Guarding, Rigid, Organomegaly, Rebound - Extremities Exam Extremities Exam: absent: Joint Swelling, Pedal Edema - Neurological Exam Neurological Exam: Alert, Awake, Oriented x3 - Psychiatric Exam Psychiatric exam: Normal Affect, Normal Mood - Skin Skin Exam: Dry, Intact, Normal Color, Warm Assessment and Plan - Assessment and Plan (Free Text) Assessment: 53 year old male with PMH of Polysubstance Abuse, Alcoholic Pancreatitis 02/2017 , and HCV 2007 s/p IFN/Ribavirin 2009 without SVR presenting with abdominal pain. alcoholic pancreatitis alcohol withdrawal. ETOH abuse and dependense Elevated LFTs, likey 2/2 ETOH, r/o viral hep Hep Antibody + Plan: -keep NPO, can advance to clears if less nauseous -aggressive IVFs -received 3L IVF bolus -maintenance LR 250cc/hr -suportive care: pain control, anti-emetics -GB polyp vs stone on U/S -counselled on alcohol cessation -alcohol withdrawal protocol -UDS negative -recommend evaluate for inpatient detox -will follow clinical course Will D/W Dr. Jimenez <Beata Jimenez - Last Filed: 02/22/18 09:57> Objective - Vital Signs/Intake and Output Vital Signs (last 24 hours): Temp Pulse Resp BP Pulse Ox 97.9 F 73 20 145/85 95 02/22/18 08:19 02/22/18 08:19 02/22/18 08:19 02/22/18 08:19 02/22/18 08:19 - Medications Medications: Current Medications Bisacodyl (Dulcolax) 10 mg SC DAILY PRN PRN Reason: Constipation Chlordiazepoxide (Librium) 25 mg PO BID [facility] Last Admin: 02/22/18 08:30 Dose: 25 mg Enoxaparin Sodium (Lovenox) 40 mg SC DAILY [facility] PRN Reason: Protocol Last Admin: 02/22/18 08:30 Dose: 40 mg Lactated Ringer's (Lactated Ringer's) 1,000 mls @ 250 mls/hr IV .Q4H [facility] Last Admin: 02/22/18 08:43 Dose: 250 mls/hr Lorazepam (Ativan) 1 mg IVP Q6 PRN PRN Reason: Agitation Morphine Sulfate (Morphine) 2 mg IVP Q3 PRN PRN Reason: Pain, severe (8-10) Last Admin: 02/22/18 06:32 Dose: 2 mg Ondansetron HCl (Zofran Inj) 4 mg IVP Q8 PRN PRN Reason: Nausea/Vomiting Last Admin: 02/22/18 08:43 Dose: 4 mg Pantoprazole Sodium (Protonix Inj) 40 mg IVP DAILY [facility] Last Admin: 02/22/18 08:30 Dose: 40 mg - Labs Labs: 02/22/18 06:15 02/22/18 06:15 PT 10.7 Seconds (9.8-13.1) 02/19/18 20:15 INR 1.0 (0.9-1.2) 02/19/18 20:15 APTT 33.1 Seconds (25.6-37.1) 02/19/18 20:15 Attending/Attestation - Attestation I have personally seen and examined this patient.: Yes I have fully participated in the care of the patient.: Yes I have reviewed all pertinent clinical information, including history, physical exam and plan: Yes Notes (Text): 02/22/18 09:55 late entry- This is a 53 year old male with PMH of Polysubstance Abuse, Alcoholic Pancreatitis 02/2017, and HCV 2007 s/p IFN/Ribavirin 2009 without SVR presenting with abdominal pain in setting of alcoholic pancreatitis. reviewed sonogram with no gallstones or biliary dilattion. Will send HCV viral load and trend CBC and LFT. Clear liquid diet as tolerated. Alcohol cessation.
--- NOTE | 2018-02-21 09:44 | HP ---
HISTORY OF PRESENT ILLNESS: PAST MEDICAL HISTORY: Significant for alcoholism and pancreatitis. PAST SURGICAL HISTORY: Unremarkable. PERSONAL HISTORY: The patient is currently nonsmoker, but heavy alcohol abuse and also denies substance abuse. MEDICATIONS: The patient is on medications as per reconciliation sheet. ALLERGIES: THE PATIENT IS NOT ALLERGIC TO ANY MEDICATION. FAMILY HISTORY: Noncontributory. REVIEW OF SYSTEMS: syncope, loss of consciousness, chest pain, shortness of breath, nausea, vomiting, diarrhea, constipation, anemia, joint or extremity pain. Review of systems of all other organ system is unremarkable. PHYSICAL EXAMINATION GENERAL: A well-built, well-nourished 53-year-old male, in no acute distress. VITAL SIGNS: Temperature afebrile, pulse 88, respirations 18, and blood pressure 140/80. HEENT: Pupils reacting to light. No nystagmus. Normocephalic and atraumatic skull. NECK: No JVD, no thyromegaly, and no lymphadenopathy. HEART: S1 and S2, normal and regular. No significant murmur, gallop, or rub is heard. LUNGS: Good bilateral air exchange. No rales or rhonchi. ABDOMEN: The patient has diffuse mild tenderness. No sign of acute abdomen. No guarding, no rigidity, and no rebound. Bowel sounds are plus and normal. EXTREMITIES: No edema, no calf swelling, no tenderness, no acute ischemia. CENTRAL NERVOUS SYSTEM: Essentially unchanged. DIAGNOSTIC DATA: Available diagnostic data reviewed. The patient's alcohol level was 300 and lipase level is 500. ADMITTING IMPRESSION: Acute pancreatitis, alcohol intoxication, chronic alcohol . Atul Kasper MD
--- NOTE | 2018-02-21 10:02 | PN ---
DATE: 02/21/2018 SUBJECTIVE: The patient is seen and examined. Interim events noted. Consults noted and appreciated. Gastroenterology and surgery. Followup interventions noted and appreciated. The patient remains in regular medical floor. The patient feels little better. The patient has some brake in his pain, but still does get pain, requiring narcotic medication. No chest pain. No shortness of breath. 00:36 origin. PHYSICAL EXAMINATION: GENERAL: The patient is in no acute distress. VITAL SIGNS: Stable. HEART: S1 and S2. Normal and regular. LUNGS: Good bilateral air exchange. ABDOMEN: Soft. The patient does have 00:50 abdomen, but no sign of acute abdomen. No guarding. No rigidity. No rebound. Bowel sounds are present and normal. EXTREMITIES: No edema. No calf swelling. No tenderness. No acute ischemia. 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 The patient does not have sign of alcohol withdrawal at this time, although the patient is on Librium. DIAGNOSTIC DATA: Available diagnostic data reviewed. Repeat lipase level is pending. Overall, the patient seems to be slightly improving, at least from the pain part. The patient also is amendable for alcohol rehab. Plan as ordered. Atul Kasper MD
--- NOTE | 2018-02-21 10:03 | CP.PCM.PN ---
Subjective - Date & Time of Evaluation Date of Evaluation: 02/21/18 Time of Evaluation: 09:58 - Subjective Subjective: General Surgery Pt seen and examined this AM. He previously had nausea, that was relieved with Zofran. (-) vomiting. He reports he still has abdominal pain but it is less severe now. He reports his pain is now intermittent. Pt's last drink was 02/18/18, he denies feeling withdrawals. Labs and vitals noted. PE Gen: Pt laying in bed in NAD Skin: warm and dry Cardio: s1s2 RRR Lungs: CTA bilaterally Abd: Soft NTND A/P Alcoholic Pancreatitis Pt to remain NPO while he is symptomatic Advance diet as tolerated to regular when pt feels ready Continue IVF Pain control Objective - Vital Signs/Intake and Output Vital Signs (last 24 hours): Temp Pulse Resp BP Pulse Ox 97.9 F 72 20 143/78 97 02/21/18 08:04 02/21/18 08:04 02/21/18 08:04 02/21/18 08:04 02/21/18 08:04 - Medications Medications: Current Medications Bisacodyl (Dulcolax) 10 mg [place] DAILY PRN PRN Reason: Constipation Chlordiazepoxide (Librium) 25 mg PO BID [facility] BEDS AT [facility] Last Admin: 02/20/18 18:54 Dose: 25 mg Enoxaparin Sodium (Lovenox) 40 mg SC DAILY [facility] 234 BEDS AT [facility] PRN Reason: Protocol Last Admin: 02/21/18 08:38 Dose: 40 mg Lactated Ringer's (Lactated Ringer's) 1,000 mls @ 250 mls/hr IV .Q4H [facility] 234 BEDS AT [facility] Lorazepam (Ativan) 1 mg IVP Q6 PRN PRN Reason: Agitation Morphine Sulfate (Morphine) 2 mg IVP Q3 PRN PRN Reason: Pain, severe (8-10) Last Admin: 02/21/18 08:37 Dose: 2 mg Ondansetron HCl (Zofran Inj) 4 mg IVP Q8 PRN PRN Reason: Nausea/Vomiting Last Admin: 02/20/18 18:56 Dose: 4 mg Pantoprazole Sodium (Protonix Inj) 40 mg IVP DAILY [facility] B[facility]S [facility] Last Admin: 02/21/18 08:38 Dose: 40 mg - Labs Labs: 02/21/18 05:50 02/21/18 05:50 PT 10.7 Seconds (9.8-13.1) 02/19/18 20:15 INR 1.0 (0.9-1.2) 02/19/18 20:15 APTT 33.1 Seconds (25.6-37.1) 02/19/18 20:15
[2018-02-21] MEDS ORDERED: Iohexol 240 (50 ml) PO ONE (14:09)
[2018-02-21] MEDS ORDERED: Sodium Chloride 0.9% 50 ML IV ONE (15:10)
[2018-02-21] MEDS ORDERED: Iodixanol 320 MG/ML 100 ML BOTTLE IV ONE (15:10)
--- NOTE | 2018-02-21 16:44 | CT ---
Date of service: 02/21/2018 PROCEDURE: CT Abdomen and Pelvis with contrast HISTORY: Abdominal pain, eval pancreatitis COMPARISON: 02/19/2018. Abdominal ultrasound TECHNIQUE: Contrast dose: 95 cc Omnipaque 300 Radiation dose: Total exam DLP = 724.04 mGy-cm. This CT exam was performed using one or more of the following dose reduction techniques: Automated exposure control, adjustment of the mA and/or kV according to patient size, and/or use of iterative reconstruction technique. FINDINGS: LOWER THORAX: Unremarkable. LIVER: Hepatic steatosis. No focal masses. No intrahepatic bile duct dilatation or perihepatic ascites. GALLBLADDER AND BILE DUCTS: Unremarkable. PANCREAS: Unremarkable. No gross lesion or ductal dilatation. SPLEEN: Unremarkable. ADRENALS: Unremarkable. No mass. KIDNEYS AND URETERS: Unremarkable. No hydronephrosis. No solid mass. Incidental finding(s): 2 mm nonobstructing calculus midpole left kidney. Similar sized upper pole calculus nonobstructing right kidney. VASCULATURE: Unremarkable. No aortic aneurysm. BOWEL: Unremarkable. No obstruction. No gross mural thickening. APPENDIX: Normal appendix. PERITONEUM: Unremarkable. No free fluid. No free air. LYMPH NODES: Unremarkable. No enlarged lymph nodes. BLADDER: Unremarkable. REPRODUCTIVE: Unremarkable. BONES: No acute fracture. OTHER FINDINGS: None. IMPRESSION: No significant or acute findings to account for/ related to the clinical presentation. Additional benign and/or incidental findings described above.
[2018-02-22] MEDS: Lactated Ringer's 1,000 ML IV SCH ×6 (02:39→21:30)
[2018-02-22 06:36] LABS: HEMOGLOBIN 13.5 g/dL (12.0-18.0); MEAN CELL VOLUME 86.9 fl (80.0-94.0); MEAN CORPUSCULAR HEMOGLOBIN 29.6 pg (27.0-31.0); MEAN CORPUSCULAR HGB CONC 34.1 g/dL (33.0-37.0); RBC 4.56 Mil/uL (4.40-5.90); RED CELL DISTRIBUTION WIDTH 14.2 % (11.5-14.5); WHITE BLOOD COUNT 5.2 K/uL (4.8-10.8)
[2018-02-22 06:54] LABS: ALB/GLOB RATIO 1.2 (1.0-2.1); ALBUMIN 3.3 g/dL (3.5-5.0); ALT/SGPT 79 U/L (21-72); AMYLASE 101 U/L (30-110); AST/SGOT 100 U/L (17-59); BLOOD UREA NITROGEN 7 mg/dl (9-20); CALCIUM 8.6 mg/dL (8.4-10.2); GFR AFRICAN-AMERICAN > 60; GFR NON-AFRICAN AMERICAN > 60; LIPASE 114 U/L (23-300)
--- NOTE | 2018-02-22 07:39 | CP.PCM.PN ---
<Yasmin Weller - Last Filed: 02/22/18 07:39> Subjective - Date & Time of Evaluation Date of Evaluation: 02/22/18 Time of Evaluation: 07:00 - Subjective Subjective: PGY5 GI Follow-up Note Pt seen and examined bedside Still has abd pain but improved sig less nauseous Denies any fever, chills or diaphoresis ROS: 12 point ROS conducted, neg other than above Objective - Vital Signs/Intake and Output Vital Signs (last 24 hours): Temp Pulse Resp BP Pulse Ox 97.7 F 65 19 130/78 95 02/22/18 00:41 02/22/18 00:41 02/22/18 00:41 02/22/18 00:41 02/22/18 00:41 - Medications Medications: Current Medications Bisacodyl (Dulcolax) 10 mg [place] DAILY PRN PRN Reason: Constipation Chlordiazepoxide (Librium) 25 mg PO BID [facility] Last Admin: 02/21/18 17:42 Dose: 25 mg Enoxaparin Sodium (Lovenox) 40 mg [place] DAILY [facility] PRN Reason: Protocol Last Admin: 02/21/18 08:38 Dose: 40 mg Lactated Ringer's (Lactated Ringer's) 1,000 mls @ 250 mls/hr IV .Q4H [facility] Last Admin: 02/22/18 04:42 Dose: Not Given Lorazepam (Ativan) 1 mg IVP Q6 PRN PRN Reason: Agitation Morphine Sulfate (Morphine) 2 mg IVP Q3 PRN PRN Reason: Pain, severe (8-10) Last Admin: 02/22/18 06:32 Dose: 2 mg Ondansetron HCl (Zofran Inj) 4 mg IVP Q8 PRN PRN Reason: Nausea/Vomiting Last Admin: 02/21/18 10:11 Dose: 4 mg Pantoprazole Sodium (Protonix Inj) 40 mg IVP DAILY [facility] Last Admin: 02/21/18 08:38 Dose: 40 mg - Labs Labs: 02/22/18 06:15 02/22/18 06:15 PT 10.7 Seconds (9.8-13.1) 02/19/18 20:15 INR 1.0 (0.9-1.2) 02/19/18 20:15 APTT 33.1 Seconds (25.6-37.1) 02/19/18 20:15 - Constitutional Appears: Well, No Acute Distress - Head Exam Head Exam: ATRAUMATIC, NORMOCEPHALIC - Eye Exam Eye Exam: Normal appearance - ENT Exam ENT Exam: Mucous Membranes Moist, Normal Exam - Neck Exam Neck Exam: Normal Inspection - Respiratory Exam Respiratory Exam: Clear to Ausculation Bilateral, NORMAL BREATHING PATTERN. absent: Rales, Rhonchi, Wheezes, Respiratory Distress - Cardiovascular Exam Cardiovascular Exam: REGULAR RHYTHM, +S1, +S2 - GI/Abdominal Exam GI & Abdominal Exam: Soft, Normal Bowel Sounds. absent: Guarding, Rigid, Tenderness, Mass, Organomegaly, Pulsatile Mass, Rebound - Extremities Exam Extremities Exam: absent: Joint Swelling, Pedal Edema - Neurological Exam Neurological Exam: Alert, Awake, Oriented x3 - Psychiatric Exam Psychiatric exam: Normal Affect, Normal Mood - Skin Skin Exam: Dry, Intact, Normal Color, Warm Assessment and Plan - Assessment and Plan (Free Text) Assessment: 53 year old male with PMH of Polysubstance Abuse, Alcoholic Pancreatitis 02/2017 , and HCV 2007 s/p IFN/Ribavirin 2009 without SVR presenting with abdominal pain. Abd pain, etiology more likely 2/2 ETOH gastritis vs Acute pancreatitis alcoholic pancreatitis?, only meets 1 out of three criteria (abd pain, lipase not > x3 upper limits, neg imaging) alcohol withdrawal. ETOH abuse and dependense Elevated LFTs, likey 2/2 ETOH, r/o viral hep Hep Antibody + Plan: -will start on clears today -maintenance LR 250cc/hr -suportive care: pain control, anti-emetics -GB polyp vs stone on U/S -counselled on alcohol cessation -alcohol withdrawal protocol -UDS negative -recommend evaluate for inpatient detox -will follow clinical course Will D/W Dr. Jimenez <Beata Jimenez - Last Filed: 02/22/18 10:01> Objective - Vital Signs/Intake and Output Vital Signs (last 24 hours): Temp Pulse Resp BP Pulse Ox 97.9 F 73 20 145/85 95 02/22/18 08:19 02/22/18 08:19 02/22/18 08:19 02/22/18 08:19 02/22/18 08:19 - Medications Medications: Current Medications Bisacodyl (Dulcolax) 10 mg [place] DAILY PRN PRN Reason: Constipation Chlordiazepoxide (Librium) 25 mg PO BID [facility] Last Admin: 02/22/18 08:30 Dose: 25 mg Enoxaparin Sodium (Lovenox) 40 mg [place] DAILY [facility] PRN Reason: Protocol Last Admin: 02/22/18 08:30 Dose: 40 mg Lactated Ringer's (Lactated Ringer's) 1,000 mls @ 250 mls/hr IV .Q4H [facility] Last Admin: 02/22/18 08:43 Dose: 250 mls/hr Lorazepam (Ativan) 1 mg IVP Q6 PRN PRN Reason: Agitation Morphine Sulfate (Morphine) 2 mg IVP Q3 PRN PRN Reason: Pain, severe (8-10) Last Admin: 02/22/18 06:32 Dose: 2 mg Ondansetron HCl (Zofran Inj) 4 mg IVP Q8 PRN PRN Reason: Nausea/Vomiting Last Admin: 02/22/18 08:43 Dose: 4 mg Pantoprazole Sodium (Protonix Inj) 40 mg IVP DAILY [facility] Last Admin: 02/22/18 08:30 Dose: 40 mg - Labs Labs: 02/22/18 06:15 02/22/18 06:15 PT 10.7 Seconds (9.8-13.1) 02/19/18 20:15 INR 1.0 (0.9-1.2) 02/19/18 20:15 APTT 33.1 Seconds (25.6-37.1) 02/19/18 20:15 Attending/Attestation - Attestation I have personally seen and examined this patient.: Yes I have fully participated in the care of the patient.: Yes I have reviewed all pertinent clinical information, including history, physical exam and plan: Yes Notes (Text): 02/22/18 09:58 This is a 53 year old male with PMH of Polysubstance Abuse, Alcoholic Pancreatitis 02/2017, and HCV 2008 s/p IFN/Ribavirin 2009 without SVR presenting with abdominal pain in setting of alcoholic pancreatitis. reviewed sonogram and Ct abdomen with no gallstones or biliary dilatation. HCV viral load pending and trend CBC and LFT. Clear liquid diet as tolerated. Alcohol cessation reinforced.
[2018-02-22] MEDS: Enoxaparin 40 mg Syringe SC SCH (08:30)
--- NOTE | 2018-02-22 11:05 | PN ---
DATE: 02/22/2018 SUBJECTIVE: The patient is seen and examined. Interim events noted. Consults noted and appreciated. Surgery and gastroenterology follow up and intervention noted and appreciated. The patient remains in regular medical floor. The patient still complains of pain, but she continue with technical services manager. 00:32 complaining of chest pain and shortness of breath. The patient feels 00:40. PHYSICAL EXAMINATION: GENERAL: The patient is in no acute distress. VITAL SIGNS: Stable. HEART: S1 and S2. Normal and regular. LUNGS: Good bilateral air exchange. ABDOMEN: Soft and nontender, but the patient does have generalized sensitivity more throwing in epigastric region. EXTREMITIES: No edema. No calf swelling. No tenderness. No acute ischemia. RESEARCH & INSIGHTS EXECUTIVE: Essentially unchanged. DIAGNOSTIC DATA: Available diagnostic data reviewed. Lipase level is 102. PLAN: Overall, the patient seems to be clinically and lab lopez seems to be improving. We will start liquid diet. No sign of withdrawal. Plan as ordered. Case and plan is discussed with the patient. Atul Kasper MD
[2018-02-23] MEDS: Lactated Ringer's 1,000 ML IV SCH ×5 (03:11→16:21)
[2018-02-23 07:20] LABS: BASO % 0.6 % (0.0-2.0); EOS # 0.2 K/uL (0.0-0.7); EOS % 3.3 % (0.0-4.0); HEMOGLOBIN 13.9 g/dL (12.0-18.0); LYMPH # 1.6 K/uL (1.0-4.3); LYMPH % 34.5 % (20.0-40.0); MEAN CELL VOLUME 88.8 fl (80.0-94.0); MEAN CORPUSCULAR HEMOGLOBIN 29.5 pg (27.0-31.0); MEAN CORPUSCULAR HGB CONC 33.3 g/dL (33.0-37.0); MEAN PLATELET VOLUME 9.5 fl (7.2-11.7); MONO # 0.5 K/uL (0.0-0.8); MONO % 10.4 % (0.0-10.0); NEUT # 2.4 K/uL (1.8-7.0); NEUT % 51.2 % (50.0-75.0); NRBC % 0.1 % (0.0-0.0); RBC 4.71 Mil/uL (4.40-5.90); RED CELL DISTRIBUTION WIDTH 13.9 % (11.5-14.5); WHITE BLOOD COUNT 4.7 K/uL (4.8-10.8)
[2018-02-23 07:25] LABS: ALB/GLOB RATIO 1.2 (1.0-2.1); ALBUMIN 3.5 g/dL (3.5-5.0); BILIRUBIN,DIRECT 0.6 mg/ml (0.0-0.4)
[2018-02-23] MEDS: Enoxaparin 40 mg Syringe SC SCH (08:59)
--- NOTE | 2018-02-23 11:06 | CP.PCM.PN ---
<Yasmin Weller - Last Filed: 02/23/18 14:02> Subjective - Date & Time of Evaluation Date of Evaluation: 02/23/18 Time of Evaluation: 08:00 - Subjective Subjective: PGY5 GI Follow-up Pt seen and examined bedside still c/o abd pain vomited after regular diet ROS: 12 point ROS conducted, neg other than above Objective - Vital Signs/Intake and Output Vital Signs (last 24 hours): Temp Pulse Resp BP Pulse Ox 98.1 F 55 L 20 134/80 95 02/23/18 09:00 02/23/18 09:00 02/23/18 09:00 02/23/18 09:00 02/23/18 09:00 - Medications Medications: Current Medications Acetaminophen (Tylenol 325mg Tab) 650 mg PO Q6 PRN PRN Reason: Pain, Mild (1-3) Bisacodyl (Dulcolax) 10 mg [place] DAILY PRN PRN Reason: Constipation Chlordiazepoxide (Librium) 25 mg PO BID [facility] Last Admin: 02/23/18 08:58 Dose: 25 mg Enoxaparin Sodium (Lovenox) 40 mg SC DAILY [facility] PRN Reason: Protocol Last Admin: 02/23/18 08:59 Dose: 40 mg Lactated Ringer's (Lactated Ringer's) 1,000 mls @ 250 mls/hr IV .Q4H [facility] Last Admin: 02/23/18 08:58 Dose: 250 mls/hr Lorazepam (Ativan) 1 mg IVP Q6 PRN PRN Reason: Agitation Ondansetron HCl (Zofran Inj) 4 mg IVP Q8 PRN PRN Reason: Nausea/Vomiting Last Admin: 02/23/18 10:07 Dose: 4 mg Pantoprazole Sodium (Protonix Inj) 40 mg IVP DAILY [facility] Last Admin: 02/23/18 08:59 Dose: 40 mg - Labs Labs: 02/23/18 06:21 02/22/18 06:15 PT 10.7 Seconds (9.8-13.1) 02/19/18 20:15 INR 1.0 (0.9-1.2) 02/19/18 20:15 APTT 33.1 Seconds (25.6-37.1) 02/19/18 20:15 - Constitutional Appears: Well, No Acute Distress - Head Exam Head Exam: ATRAUMATIC, NORMOCEPHALIC - Eye Exam Eye Exam: Normal appearance - ENT Exam ENT Exam: Mucous Membranes Moist, Normal Exam - Neck Exam Neck Exam: Normal Inspection - Respiratory Exam Respiratory Exam: Clear to Ausculation Bilateral, NORMAL BREATHING PATTERN. absent: Rales, Rhonchi, Wheezes, Respiratory Distress - Cardiovascular Exam Cardiovascular Exam: REGULAR RHYTHM, +S1, +S2 - GI/Abdominal Exam GI & Abdominal Exam: Soft, Normal Bowel Sounds. absent: Distended, Firm, Guarding, Rigid, Organomegaly, Rebound - Extremities Exam Extremities Exam: absent: Joint Swelling, Pedal Edema - Neurological Exam Neurological Exam: Alert, Awake, Oriented x3 - Psychiatric Exam Psychiatric exam: Normal Affect, Normal Mood - Skin Skin Exam: Dry, Intact, Normal Color, Warm Assessment and Plan - Assessment and Plan (Free Text) Assessment: 53 year old male with PMH of Polysubstance Abuse, Alcoholic Pancreatitis 02/2017 , and HCV 2007 s/p IFN/Ribavirin 2009 without SVR presenting with abdominal pain. Abd pain, etiology more likely 2/2 ETOH gastritis vs Acute pancreatitis vs secondary gain from pain meds alcoholic pancreatitis?, only meets 1 out of three criteria (abd pain, lipase not > x3 upper limits, neg imaging) alcohol withdrawal. ETOH abuse and dependence Elevated LFTs, likey 2/2 ETOH, r/o viral hep Hep Antibody + Plan: -deescalte diet to full liquids -maintenance LR 250cc/hr -supportive care: pain control, anti-emetics -GB polyp vs stone on U/S -counselled on alcohol cessation -alcohol withdrawal protocol -UDS negative -recommend evaluate for inpatient detox -would be cautious with opiod pain meds, suspect secondary gain Will D/W Dr. Jimenez <Beata Jimenez - Last Filed: 02/23/18 14:14> Objective - Vital Signs/Intake and Output Vital Signs (last 24 hours): Temp Pulse Resp BP Pulse Ox 98.1 F 55 L 20 134/80 95 02/23/18 09:00 02/23/18 09:00 02/23/18 09:00 02/23/18 09:00 02/23/18 09:00 - Medications Medications: Current Medications Acetaminophen (Tylenol 325mg Tab) 650 mg PO Q6 PRN PRN Reason: Pain, Mild (1-3) Last Admin: 02/23/18 12:30 Dose: 650 mg Bisacodyl (Dulcolax) 10 mg [place] DAILY PRN PRN Reason: Constipation Chlordiazepoxide (Librium) 25 mg PO BID [facility] Last Admin: 02/23/18 08:58 Dose: 25 mg Enoxaparin Sodium (Lovenox) 40 mg SC DAILY [facility] PRN Reason: Protocol Last Admin: 02/23/18 08:59 Dose: 40 mg Hydrocortisone (Cortizone 0.5% Cream) 1 applic TOP BID [facility] Last Admin: 02/23/18 12:40 Dose: 1 units Lactated Ringer's (Lactated Ringer's) 1,000 mls @ 250 mls/hr IV .Q4H [facility] Last Admin: 02/23/18 12:33 Dose: 250 mls/hr Lorazepam (Ativan) 1 mg IVP Q6 PRN PRN Reason: Agitation Ondansetron HCl (Zofran Inj) 4 mg IVP Q8 PRN PRN Reason: Nausea/Vomiting Last Admin: 02/23/18 10:07 Dose: 4 mg Pantoprazole Sodium (Protonix Inj) 40 mg IVP DAILY [facility] Last Admin: 02/23/18 08:59 Dose: 40 mg - Labs Labs: 02/23/18 06:21 02/22/18 06:15 PT 10.7 Seconds (9.8-13.1) 02/19/18 20:15 INR 1.0 (0.9-1.2) 02/19/18 20:15 APTT 33.1 Seconds (25.6-37.1) 02/19/18 20:15 Attending/Attestation - Attestation I have personally seen and examined this patient.: Yes I have fully participated in the care of the patient.: Yes I have reviewed all pertinent clinical information, including history, physical exam and plan: Yes Notes (Text): 02/23/18 14:12 This is a 53 year old male with PMH of Polysubstance Abuse, Alcoholic Pancreatitis 02/2017, and HCV 2008 s/p IFN/Ribavirin 2009 without SVR presenting with abdominal pain in setting of alcoholic pancreatitis. Reviewed sonogram and CT abdomen with no gallstones or biliary dilatation. On biochemical and imaging he does not have s/s of pancreatitis. No pancreatic duct stricture. May have opoid seeking behavior.Diet as tolerated. Will sign off. Alcohol cessation reinforced.
--- NOTE | 2018-02-23 11:52 | PN ---
DATE: 02/23/2018 SUBJECTIVE: The patient is seen and examined. Interim events noted. Consults noted and appreciated. Gastroenterology follow up and intervention noted and appreciated. The patient remains in regular medical floor. The patient tried liquid diet till yesterday, had some stomach upset, burning, and nausea, but no vomiting, also had episode of diarrhea, but no blood. Abdominal pain from pancreatitis has improved, but still has stomach burning. PHYSICAL EXAMINATION: GENERAL: The patient is in no acute distress. VITAL SIGNS: Stable. HEART: S1 and S2. Normal and regular. LUNGS: Good bilateral air exchange. ABDOMEN: Soft and nontender. No sign of acute abdomen. No guarding. No rigidity present. Positive bowel sounds are normal. EXTREMITIES: No edema. No calf swelling. No tenderness. No acute ischemia. CONFERENCE SERVICES COORDINATOR: Essentially unchanged. DIAGNOSTIC DATA: Available diagnostic data reviewed. ASSESSMENT AND PLAN: Overall, the patient's general medical condition is stable. Plan as ordered. Atul Kasper MD
--- NOTE | 2018-02-23 17:11 | RAD ---
Date of service: 02/23/2018 HISTORY: rehab clearance COMPARISON: No prior. FINDINGS: LUNGS: No active pulmonary disease. PLEURA: No significant pleural effusion identified, no pneumothorax apparent. CARDIOVASCULAR: No radiographic findings to suggest acute or significant cardiovascular disease. OSSEOUS STRUCTURES: No significant abnormalities. VISUALIZED UPPER ABDOMEN: Normal. OTHER FINDINGS: None. IMPRESSION: No active disease.
--- NOTE | 2018-02-24 07:37 | CP.PCM.PN ---
<Wendy Macdonald - Last Filed: 02/24/18 12:45> Subjective - Date & Time of Evaluation Date of Evaluation: 02/24/18 Time of Evaluation: 07:35 - Subjective Subjective: No acute overnight events. Endorsing pain in epigastria, 1x episode of emesis in the AM. Denies nausea, fever, chills, chest pain and dyspnea. Objective - Vital Signs/Intake and Output Vital Signs (last 24 hours): Temp Pulse Resp BP Pulse Ox 98 F 54 L 18 129/79 95 02/23/18 16:51 02/23/18 16:51 02/23/18 16:51 02/23/18 16:51 02/23/18 16:51 - Medications Medications: Current Medications Acetaminophen (Tylenol 325mg Tab) 650 mg PO Q6 PRN PRN Reason: Pain, Mild (1-3) Last Admin: 02/23/18 12:30 Dose: 650 mg Bisacodyl (Dulcolax) 10 mg [place] DAILY PRN PRN Reason: Constipation Chlordiazepoxide (Librium) 25 mg PO BID [facility] Last Admin: 02/23/18 16:21 Dose: 25 mg Enoxaparin Sodium (Lovenox) 40 mg SC DAILY [facility] PRN Reason: Protocol Last Admin: 02/23/18 08:59 Dose: 40 mg Hydrocortisone (Cortizone 0.5% Cream) 1 applic TOP BID [facility] Last Admin: 02/23/18 16:22 Dose: 1 applic Lactated Ringer's (Lactated Ringer's) 1,000 mls @ 250 mls/hr IV .Q4H [facility] Last Admin: 02/23/18 16:21 Dose: Not Given Lorazepam (Ativan) 1 mg IVP Q6 PRN PRN Reason: Agitation Ondansetron HCl (Zofran Inj) 4 mg IVP Q8 PRN PRN Reason: Nausea/Vomiting Last Admin: 02/23/18 10:07 Dose: 4 mg Pantoprazole Sodium (Protonix Inj) 40 mg IVP DAILY [facility] Last Admin: 02/23/18 08:59 Dose: 40 mg - Labs Labs: 02/23/18 06:21 02/22/18 06:15 PT 10.7 Seconds (9.8-13.1) 02/19/18 20:15 INR 1.0 (0.9-1.2) 02/19/18 20:15 APTT 33.1 Seconds (25.6-37.1) 02/19/18 20:15 - Constitutional Appears: No Acute Distress - Eye Exam Eye Exam: EOMI - ENT Exam ENT Exam: Mucous Membranes Moist - Respiratory Exam Respiratory Exam: Clear to Ausculation Bilateral. absent: Wheezes - Cardiovascular Exam Cardiovascular Exam: REGULAR RHYTHM, +S1, +S2 - GI/Abdominal Exam GI & Abdominal Exam: Soft, Tenderness (mild tenderness in the epigastria on deep palpation ), Normal Bowel Sounds - Extremities Exam Extremities Exam: Normal Inspection. absent: Calf Tenderness, Pedal Edema - Neurological Exam Neurological Exam: Alert, Awake Assessment and Plan - Assessment and Plan (Free Text) Assessment: 53 YO Male with PMHx of pancreatitis, Hep c, ETOH abuse is admitted for acute alcoholic pancreatitis. -Labs reviewd; VS stable -CXR no active disease -GI on board; pt stable signed off -advanced diet as tolerated -plan as ordered Pt seen and examined with Dr. Kasper. <Atul Kasper - Last Filed: 02/27/18 19:25> Objective - Vital Signs/Intake and Output Vital Signs (last 24 hours): Temp Pulse Resp BP Pulse Ox 97.4 F L 54 L 19 147/88 95 02/25/18 09:00 02/25/18 09:00 02/25/18 09:00 02/25/18 09:00 02/25/18 09:00 - Labs Labs: 02/23/18 06:21 02/22/18 06:15 PT 10.7 Seconds (9.8-13.1) 02/19/18 20:15 INR 1.0 (0.9-1.2) 02/19/18 20:15 APTT 33.1 Seconds (25.6-37.1) 02/19/18 20:15 Assessment and Plan - Assessment and Plan (Free Text) Assessment: Patient was personally seen and examined by me in rounds with residents. Available labs and diagnostic data reviewed. Case, Patient's condition and management plan discussed with residents in rounds. Agree with resident's progress note. Plan: As ordered.
[2018-02-24] MEDS: Lactated Ringer's 1,000 ML IV SCH ×3 (08:25→22:05)
[2018-02-24] MEDS: Enoxaparin 40 mg Syringe SC SCH (08:38)
[2018-02-25 00:55] VITALS: RESP 19
[2018-02-25] MEDS: Lactated Ringer's 1,000 ML IV SCH (06:02)
[2018-02-25 07:55] VITALS: BP 147/88; PULSE 54; TEMP 97.4; O2SAT 95
[2018-02-25] MEDS: Enoxaparin 40 mg Syringe SC SCH (08:23)
[2018-02-25] MEDS ORDERED: Acetaminophen-Codeine 300/30 mg Tab PO PRN (10:56)
--- NOTE | 2018-02-25 10:59 | CP.PCM.DIS ---
Provider - Provider Date of Admission: 02/19/18 22:21 Attending physician: Atul Kasper MD Consults: 02/20/18 05:44 Social Work Referral Routine Comment: as per data base. Physician Instructions: Reason For Exam: Alcoholic since age 12 Time Spent in preparation of Discharge (in minutes): 20 Diagnosis - Discharge Diagnosis (1) Alcoholic pancreatitis Status: Resolved (2) Alcohol abuse with intoxication Status: Resolved (3) Hepatitis C Status: Chronic Hospital Course - Lab Results Lab Results: Most Recent Lab Values WBC 4.7 K/uL (4.8-10.8) L 02/23/18 06:21 RBC 4.71 Mil/uL (4.40-5.90) 02/23/18 06:21 Hgb 13.9 g/dL (12.0-18.0) 02/23/18 06:21 Hct 41.8 % (35.0-51.0) 02/23/18 06:21 MCV 88.8 fl (80.0-94.0) 02/23/18 06:21 MCH 29.5 pg (27.0-31.0) 02/23/18 06:21 MCHC 33.3 g/dL (33.0-37.0) 02/23/18 06:21 RDW 13.9 % (11.5-14.5) 02/23/18 06:21 Plt Count 106 K/uL (130-400) L 02/23/18 06:21 MPV 9.5 fl (7.2-11.7) 02/23/18 06:21 Neut % (Auto) 51.2 % (50.0-75.0) 02/23/18 06:21 Lymph % (Auto) 34.5 % (20.0-40.0) 02/23/18 06:21 Morrow % (Auto) 10.4 % (0.0-10.0) H 02/23/18 06:21 Eos % (Auto) 3.3 % (0.0-4.0) 02/23/18 06:21 Baso % (Auto) 0.6 % (0.0-2.0) 02/23/18 06:21 Neut # (Auto) 2.4 K/uL (1.8-7.0) 02/23/18 06:21 Lymph # (Auto) 1.6 K/uL (1.0-4.3) 02/23/18 06:21 Morrow # (Auto) 0.5 K/uL (0.0-0.8) 02/23/18 06:21 Eos # (Auto) 0.2 K/uL (0.0-0.7) 02/23/18 06:21 Baso # (Auto) 0.0 K/uL (0.0-0.2) 02/23/18 06:21 PT 10.7 Seconds (9.8-13.1) 02/19/18 20:15 INR 1.0 (0.9-1.2) 02/19/18 20:15 APTT 33.1 Seconds (25.6-37.1) 02/19/18 20:15 Sodium 135 mmol/l (132-148) 02/22/18 06:15 Potassium 3.8 MMOL/L (3.6-5.0) 02/22/18 06:15 Chloride 96 mmol/L (98-107) L 02/22/18 06:15 Carbon Dioxide 30 mmol/L (22-30) 02/22/18 06:15 Anion Gap 13 (10-20) 02/22/18 06:15 BUN 7 mg/dl (9-20) L 02/22/18 06:15 Creatinine 0.6 mg/dl (0.8-1.5) L 02/22/18 06:15 Est GFR ( Amer) > 60 02/22/18 06:15 Est GFR (Non-Af Amer) > 60 02/22/18 06:15 Random Glucose 83 mg/dL (75-110) 02/22/18 06:15 Calcium 8.6 mg/dL (8.4-10.2) 02/22/18 06:15 Total Bilirubin 1.1 mg/dl (0.2-1.3) 02/23/18 06:21 Direct Bilirubin 0.6 mg/ml (0.0-0.4) H 02/23/18 06:21 AST 102 U/L (17-59) H 02/23/18 06:21 ALT 82 U/L (21-72) H 02/23/18 06:21 Alkaline Phosphatase 116 U/L (38-126) 02/23/18 06:21 Troponin I < 0.0120 ng/mL (0.00-0.120) 02/19/18 20:15 Total Protein 6.4 G/DL (6.3-8.2) 02/23/18 06:21 Albumin 3.5 g/dL (3.5-5.0) 02/23/18 06:21 Globulin 2.9 gm/dL (2.2-3.9) 02/23/18 06:21 Albumin/Globulin Ratio 1.2 (1.0-2.1) 02/23/18 06:21 Amylase 101 U/L (30-110) 02/22/18 06:15 Lipase 114 U/L (23-300) 02/22/18 06:15 Urine Opiates Screen Negative (NEGATIVE) 02/19/18 20:46 Urine Methadone Screen Negative (NEGATIVE) 02/19/18 20:46 Ur Barbiturates Screen Negative (NEGATIVE) 02/19/18 20:46 Ur Phencyclidine Scrn Negative (NEGATIVE) 02/19/18 20:46 Ur Amphetamines Screen Negative (NEGATIVE) 02/19/18 20:46 U Benzodiazepines Scrn Negative (NEGATIVE) 02/19/18 20:46 U Oth Cocaine Metabols Negative (NEGATIVE) 02/19/18 20:46 U Cannabinoids Screen Negative (NEGATIVE) 02/19/18 20:46 Alcohol, Quantitative 358 mg/dl (0-10) H* 02/19/18 20:15 - Hospital Course Hospital Course: 53 YO Male with PMHx of pancreatitis, Hep c, ETOH abuse is admitted for acute alcoholic pancreatitis. GI was consulted and pt treated with IVF and PO meds. Over hospital stay pancreatits resolved. Pt cleared by GI for d/c, tolerating PO diet. Will d/c pt home for outpatient ETOH detox and follow up with PMD in 1 week. Discharge Exam - Head Exam Head Exam: ATRAUMATIC, NORMOCEPHALIC - Eye Exam Eye Exam: EOMI - ENT Exam ENT Exam: Mucous Membranes Moist - Respiratory Exam Respiratory Exam: Clear to PA & Lateral. absent: Wheezes - Cardiovascular Exam Cardiovascular Exam: REGULAR RHYTHM, +S1, +S2 - GI/Abdominal Exam GI & Abdominal Exam: Normal Bowel Sounds, Soft. absent: Tenderness - Extremities Exam Extremities exam: normal inspection - Neurological Exam Neurological exam: Alert, Oriented x3 Discharge Plan - Discharge Medications Prescriptions: Dicyclomine [Dicyclomine HCl] 10 mg PO TID #28 cap Dicyclomine [Bentyl] 10 mg PO QID #28 cap Hydrocortisone 0.5% CREAM [Cortizone 0.5% CREAM] 1 applic TOP BID #1 tube Pantoprazole Sodium [Protonix] 40 mg PO DAILY #30 ect - Follow Up Plan Condition: STABLE Disposition: HOME/ ROUTINE Instructions: Pancreatitis (DC) Additional Instructions: pt. cleared for discharge to Home today by pt. will f/u with outpatient Detox rx for meds provided follow up with primary MD 1 week Referrals: Atul Kasper MD [Staff Provider] - Beata Jimenez MD [Medical Doctor] - Nathaniel Magaña MD [Staff Provider] -
== END 2018-02-25 13:31 | disposition home or self-care (01) | DRG 204 ==
LOC: H.ER 19:53 → H.ERHOLD 22:21 → H.MEDSURG1 02-20 00:45
PROVIDERS: ADMIT Internal Medicine; ATTEND Internal Medicine
DX: K85.20 Alcohol induced acute pancreatitis without necrosis or infection (principal); B18.2 Chronic viral hepatitis C; F10.239 Alcohol dependence with withdrawal, unspecified; J44.9 Chronic obstructive pulmonary disease, unspecified; F10.229 Alcohol dependence with intoxication, unspecified; Y90.8 Blood alcohol level of 240 mg/100 ml or more; F31.9 Bipolar disorder, unspecified; F43.10 Post-traumatic stress disorder, unspecified; E11.9 Type 2 diabetes mellitus without complications; F41.9 Anxiety disorder, unspecified; Z87.01 Personal history of pneumonia (recurrent)

== ENCOUNTER 2018-02-28 19:18 | Emergency (ER) | payer MEDICAID ==
[2018-02-28 19:18] VITALS: BMI 31.5
[2018-02-28 19:24] VITALS: TEMP 98.8
[2018-02-28] MEDS ORDERED: Sodium Chloride 0.9% 1,000 ML IV STA (19:49)
[2018-02-28] MEDS ORDERED: Thiamine 100 mg/ml Inj IV STA (19:50)
[2018-02-28] MEDS ORDERED: Thiamine 100 mg/ml Inj ONE (19:59)
[2018-02-28] MEDS ORDERED: Dextrose 5%/0.9% NS 1,000 ML IV SCH (20:00)
[2018-02-28 20:27] LABS: VENOUS BLOOD GAS BASE EXCESS 1.3 mmol/L (0.0-2.0); VENOUS BLOOD GAS PCO2 47 mmHg (40-60); VENOUS BLOOD GAS PO2 69 mm/Hg (30-55); VENOUS BLOOD PH 7.37 (7.32-7.43)
[2018-02-28 20:27] LABS: BASO # 0.1 K/uL (0.0-0.2); BASO % 0.8 % (0.0-2.0); EOS # 0.1 K/uL (0.0-0.7); EOS % 1.5 % (0.0-4.0); HEMOGLOBIN 14.4 g/dL (12.0-18.0); LYMPH # 3.9 K/uL (1.0-4.3); MEAN CELL VOLUME 88.2 fl (80.0-94.0); MEAN CORPUSCULAR HEMOGLOBIN 29.2 pg (27.0-31.0); MEAN CORPUSCULAR HGB CONC 33.1 g/dL (33.0-37.0); MEAN PLATELET VOLUME 8.8 fl (7.2-11.7); MONO # 0.6 K/uL (0.0-0.8); MONO % 8.3 % (0.0-10.0); NEUT # 3.1 K/uL (1.8-7.0); NEUT % 39.4 % (50.0-75.0); NRBC % 0.1 % (0.0-0.0); RBC 4.93 Mil/uL (4.40-5.90); RED CELL DISTRIBUTION WIDTH 14.2 % (11.5-14.5); WHITE BLOOD COUNT 7.8 K/uL (4.8-10.8)
--- NOTE | 2018-02-28 20:36 | ED PDOC ---
HPI: Abdomen Time Seen by Provider: 02/28/18 19:37 Chief Complaint (Nursing): Alcohol Ingestion Chief Complaint (Provider): Abdominal pain History Per: Patient History/Exam Limitations: intoxication Onset/Duration Of Symptoms: Hrs Outside of [place] travel?: No Current Symptoms Are (Timing): Still Present Location Of Pain/Discomfort: Diffuse Quality Of Discomfort: "Pain" Associated Symptoms: Vomiting, Diarrhea Additional History Per: Patient Additional Complaint(s): 53yo male with history of alcoholic pancreatitis, comes to ER with complaints of abdominal pain since earlier today. Patient reports he has had similar abdominal pain in the past due to his alcoholic pancreatitis. He reports associated multiple episodes of non-bilious, non-bloody vomiting and multiple non-bloody episodes of diarrhea. Patient states he has continued heavy drinking since his last discharge on 02/25. He denies any drug abuse, fever, or urinary symptoms. Of note, patient is intoxicated so the HPI is unreliable. PMD: Dr. Mejias in [place] Past Medical History Reviewed: Historical Data, Nursing Documentation, Vital Signs Vital Signs: Last Vital Signs Temp 98.8 F 02/28/18 19:20 Pulse 80 02/28/18 22:09 Resp 18 02/28/18 22:09 BP 135/89 02/28/18 21:50 Pulse Ox 96 02/28/18 23:13 - Medical History PMH: Anxiety, Bipolar Disorder, Bronchitis, COPD, Depression, Hepatitis (C), Pancreatitis, Pneumonia, Post Traumatic Stress Disorder Denies: Diabetes, HIV (Patient denied), HTN (Patient denied), Chronic Kidney Disease, Seizures, Sexually Transmitted Disease (Patient denied) - Surgical History Surgical History: No Surg Hx - Family History Family History: States: No Known Family Hx, Unknown Family Hx - Social History Alcohol: > 2 Drinks/Day Drugs: Denies - Immunization History Hx Tetanus Toxoid Vaccination: No Hx Influenza Vaccination: Yes Hx Pneumococcal Vaccination: Yes - Home Medications Home Medications: Ambulatory Orders Medication Instructions Recorded Dicyclomine [Bentyl] 10 mg PO QID #28 cap 02/25/18 Dicyclomine [Dicyclomine HCl] 10 mg PO TID #28 cap 02/25/18 Hydrocortisone 0.5% CREAM 1 applic TOP BID #1 tube 02/25/18 [Cortizone 0.5% CREAM] Pantoprazole Sodium [Protonix] 40 mg PO DAILY #30 ect 02/25/18 - Allergies Allergies/Adverse Reactions: Allergies Allergy/AdvReac Type Severity Reaction Status Date / Time No Known Allergies Allergy Verified 02/20/18 01:55 Review of Systems ROS Statement: Except As Marked, All Systems Reviewed And Found Negative (as per HPI) Constitutional: Negative for: Fever, Chills Gastrointestinal: Positive for: Vomiting, Abdominal Pain, Diarrhea. Negative for: Hematochezia, Hematemesis Physical Exam - Reviewed Nursing Documentation Reviewed: Yes Vital Signs Reviewed: Yes - Physical Exam Appears: Positive for: In Acute Distress (mild painful distress). Negative for : Well (+ intoxicated, disheveled) Head Exam: Positive for: ATRAUMATIC, NORMAL INSPECTION, NORMOCEPHALIC Skin: Positive for: Normal Color Eye Exam: Positive for: Normal appearance ENT: Positive for: Other (tacky mucus membranes). Negative for: Pharyngeal Erythema Neck: Positive for: Painless ROM, Supple Cardiovascular/Chest: Positive for: Regular Rate, Rhythm. Negative for: Murmur Respiratory: Positive for: Normal Breath Sounds. Negative for: Wheezing Gastrointestinal/Abdominal: Positive for: Soft, Tenderness (diffuse). Negative for: Mass, Guarding, Rebound Back: Positive for: Normal Inspection. Negative for: Muscle Spasm Extremity: Positive for: Normal ROM. Negative for: Deformity Lymphatic: Negative for: Adenopathy Neurologic/Psych: Positive for: Alert, Oriented (x 3), Other (slurred speech due to alcohol intoxication). Negative for: Motor/Sensory Deficits - Laboratory Results Result Diagrams: 02/28/18 20:23 02/28/18 20:23 - ECG ECG: Positive for: Interpreted By Sc ECG Rhythm: Positive for: Normal QRS, Normal ST Segment, Sinus Rhythm O2 Sat by Pulse Oximetry: 96 (RA) Pulse Ox Interpretation: Normal - Radiology X-Ray: Interpreted by Sc X-Ray Interpretation: No Acute Disease - Critical Care Total Time (In Min): 30 Documented Critical Care: Time excludes all time spent performint seperately billable procedures Medical Decision Making Medical Decision Making: Impression: Abdominal pain Differential: Including but not limited to alcohol gastritis, alcoholic pancreatitis, gastroenteritis, dehydration, AKA Plan: -- Labs -- IV Fluids -- EKG -- Zofran 8mg IV -- Protonix 40mg IV -- Thiamine 100mg IV Labs demonstrate elevated BAL. Normal lipase. Time: 2103 Patient attempting to elope from ER, callie guerra called. Patient redirected to room. Patient to be placed in 4-point restraints and given Haldol 5mg and Ativan 2mg to relieve agitation, as well as due to concern for leaving the ER. 2199 Pt intermittently yelling, but more calm 2299 Restraints removed and pt sleeping deeply. Scribe Attestation: Documented by Natasha Monroe, acting as a scribe for Karly Contreras MD. Provider Scribe Attestation: All medical record entries made by the Scribe were at my direction and personally dictated by me. I have reviewed the chart and agree that the record accurately reflects my personal performance of the history, physical exam, medical decision making, and the department course for this patient. I have also personally directed, reviewed, and agree with the discharge instructions and disposition. Disposition - Clinical Impression Clinical Impression: Alcohol abuse with alcohol-induced disorder - Disposition Disposition Time: 00:00 Condition: STABLE Patient Signed Over To: James Cordova Handoff Comments: Pending sobriety, reassessment and final ER disposition
[2018-02-28 20:45] LABS: PARTIAL THROMBOPLASTIN TIME 31.6 Seconds (25.6-37.1); PROTHROMBIN TIME 11.4 Seconds (9.8-13.1)
[2018-02-28 20:46] LABS: BARBITURATES, UR NEGATIVE (NEGATIVE); BENZODIAZEPINES, UR POSITIVE (NEGATIVE); OPIATES, UR NEGATIVE (NEGATIVE); PHENCYCLIDINE, UR NEGATIVE (NEGATIVE)
[2018-02-28 20:47] LABS: ALB/GLOB RATIO 1.3 (1.0-2.1); ALBUMIN 4.3 g/dL (3.5-5.0); ALT/SGPT 87 U/L (21-72); AST/SGOT 100 U/L (17-59); BLOOD UREA NITROGEN 11 mg/dl (9-20); CALCIUM 8.7 mg/dL (8.4-10.2); GFR AFRICAN-AMERICAN > 60; GFR NON-AFRICAN AMERICAN > 60; LIPASE 244 U/L (23-300)
[2018-02-28] MEDS ORDERED: Alum-Mag Hydrox-Simethicone Susp (30 mL) PO STA (20:56)
[2018-02-28 21:56] VITALS: BP 135/89
[2018-02-28 22:09] VITALS: RESP 18
--- NOTE | 2018-03-01 00:18 | ED PDOC ---
- Laboratory Results Result Diagrams: 02/28/18 20:23 02/28/18 20:23 - ECG O2 Sat by Pulse Oximetry: 96 (RA) Pulse Ox Interpretation: Normal Medical Decision Making Medical Decision Makin:00 --Care endorsed to this provider by Dr. Contreras pending sobriety. Time: 05:41 --Upon reevaluation, patient has steady gait and clear speech. He is sober and stable for discharge. ---- Scribe Attestation: Documented by Poppy Baldwin, acting as a scribe for James Cordova MD Provider Scribe Attestation: All medical record entries made by the Scribe were at my direction and personally dictated by me. I have reviewed the chart and agree that the record accurately reflects my personal performance of the history, physical exam, medical decision making, and the department course for this patient. I have also personally directed, reviewed, and agree with the discharge instructions and disposition. Disposition - Clinical Impression Clinical Impression: Alcohol abuse with alcohol-induced disorder - POA Present On Arrival: None - Disposition Disposition: Routine/Home Disposition Time: 05:41 Condition: STABLE Additional Instructions: RONNY FAITH, thank you for letting us take care of you today. Your provider was James Cordova MD and you were treated for ETOH, ABD PAIN. The emergency medical care you received today was directed at your acute symptoms. If you were prescribed any medication, please fill it and take as directed. It may take several days for your symptoms to resolve. Return to the Emergency Department if your symptoms worsen, do not improve, or if you have any other problems. Please contact your doctor or call one of the physicians/clinics you have been referred to that are listed on the Patient Visit Information form that is included in your discharge packet. Bring any paperwork you were given at discharge with you along with any medications you are taking to your follow up visit. Our treatment cannot replace ongoing medical care by a primary care provider outside of the emergency department. Thank you for allowing the [facility] team to be part of your care today. If you had an X-Ray or CT scan: A Radiologist will review the ED reading if any change in treatment is needed we will contact you. If you had a blood, urine, or wound culture: It will take several days for the results, if any change in treatment is needed we will contact you. If you had an STI test: It will take 48 hours for the results. Please call after 1 week if you have not heard back. Instructions: Effects of Alcohol on Your Health Forms: [facility] (Congolese)
[2018-03-01 06:27] VITALS: PULSE 89; O2SAT 100
--- NOTE | 2018-03-01 11:22 | RAD ---
Date of service: 02/28/2018 HISTORY: Chest pain COMPARISON: 02/23/2018. FINDINGS: LUNGS: No active pulmonary disease. PLEURA: No significant pleural effusion identified, no pneumothorax apparent. CARDIOVASCULAR: No radiographic findings to suggest acute or significant cardiovascular disease. OSSEOUS STRUCTURES: No significant abnormalities. VISUALIZED UPPER ABDOMEN: Normal. OTHER FINDINGS: None. IMPRESSION: No active disease. No significant interval change compared to the prior examination(s).
--- NOTE | 2018-03-01 12:32 | CARD ---
APPROVED REPORT Date of service: 02/28/2018 EKG Measurement Heart [id number] <Conclusion> Normal sinus rhythm Normal ECG
== END 2018-03-01 06:27 | disposition home or self-care (01) ==
LOC: H.ER 19:18
DX: F10.19 Alcohol abuse with unspecified alcohol-induced disorder (principal); Y90.8 Blood alcohol level of 240 mg/100 ml or more; Z86.59 Personal history of other mental and behavioral disorders; F43.10 Post-traumatic stress disorder, unspecified; J44.9 Chronic obstructive pulmonary disease, unspecified
CPT/HCPCS: 71045; 80053; 80320; 80324; 80345; 80346; 80349; 80353; 80358; 80361; 82803; 82948; 83615; 83690; 83735; 83992; 84100; 84484; 85025; 85610; 85730; 86850; 86900; 93005; 96372; 96374; 99284; C9113; J1630; J2060; J2405; J3411; J7030

== ENCOUNTER 2018-03-25 21:27 | Emergency (ER) | payer MEDICAID ==
[2018-03-25 21:28] VITALS: BMI 31.5
[2018-03-25 21:33] VITALS: BP 157/97; PULSE 86; RESP 18; TEMP 99.2; O2SAT 97
[2018-03-25] MEDS ORDERED: Naproxen 500 MG TAB PO STA (21:53)
[2018-03-25] MEDS ORDERED: Naproxen 500 MG TAB PO ONE (22:07)
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
== END 2018-03-25 22:20 | disposition home or self-care (01) ==
LOC: H.ER 21:27
DX: S61.411A Laceration without foreign body of right hand, initial encounter (principal); Y04.0XXA Assault by unarmed brawl or fight, initial encounter; Y92.89 Other specified places as the place of occurrence of the external cause; F31.9 Bipolar disorder, unspecified; F43.10 Post-traumatic stress disorder, unspecified